=== PATIENT | male | born 1985 | race Caucasian/White ===

== ENCOUNTER 2016-10-28 17:12 | Inpatient (IN) | payer OTHER ==
[~2016-10-28] VITALS: Ht 190.5 cm; Wt 120.2 kg
[~2016-10-28 17:12] MED LIST: MAGNESIUM400 MG PO; SEA-OMEGA 50 C1 EACH PO; ST. JOHN'S WOR300 M1 PO; VITAMIN B-121000 MC3 PO; VITAMIN D2000 UNI1 PO
--- NOTE | 2016-10-28 17:30 | NUR ---
PT IN IOP ENCOURAGED TO COME BY CLINICIAN THERE. REPORTING INCREASED MOOD LABILITY, PLEASANT IN BEHAVIOR AND AFFECT. REPORTS FEELINGS OF DYSPHORIA, +SI, INTERMITTENT HI WHEN HE GETS FRUSTRATED WITH OTHERS, BUT STATES HE WOULD NEVER ACT ON THESE URGES. PLAN FOR ATTEMPT PRIMARILY BY HANGING, HAS HX OF THESE THOUGHTS BUT NO ATTEMPTS. DENIES FIREARMS AT HOME. SYMPTOMS BEGAN WORSENING 2 WEEKS AGO WITH MED CHANGE, INCREASED LITHIUM, ADDED REXALTE AND PRISTIQ. REPORTS INCREASED ETOH CONSUMPTION X2 WEEKS, 4-5 BEERS/DAY. DENIES ILLICIT DRUGS. APPEARS CALM, COOPERATIVE. REQUESTING TO SPEAK WITH CRISIS.
--- NOTE | 2016-10-28 17:45 | NUR ---
PT AMBULATORY TO ROOM 14. PT REPORTS HX OF BIPOLAR D/O AND LAST INPATIENT STAY WAS IN MARCH 2016. PT STATES HE HAS BEEN HAVING SI THOUGHTS, HAS BEEN DRINKING 3-5 DAYS PER WEEK (DOES NOT USUALLY DRINK), AND HAS BEEN TRYING TO RE-HOME HIS 2 DOGS. PT STATES THAT HE LIVES ALONE, SUPPORTS INCLUDE MOM, DAD AND SISTER. PT DENIES ILLICIT DRUG USE, REPORTS SMOKING A CIGAR OCCASIONALLY. PT STATES THAT HE HAS BEEN MED COMPLIANT WITH HIS LITHIUM, REXULTI AND PRISTIQ. PT REPORTS INCREASED APPETITE, DIFFICULTY CONCENTRATING AND VARIABLE SLEEP PATTERNS. PT REPORTS 3 PRIOR SUICIDE ATTEMPTS BY HANGING.
--- NOTE | 2016-10-28 17:49 | NUR ---
PA STUDENT AT BEDSIDE
--- NOTE | 2016-10-28 17:50 | NUR ---
SECURITY AT BEDSIDE FOR WANDING PT CHANGED INTO BLUE SCRUBS
--- NOTE | 2016-10-28 18:05 | NUR ---
URINE TRIO SENT TO LAB
--- NOTE | 2016-10-28 18:50 | NUR ---
BG SNIDER AND PA STUDENT AT BEDSIDE
[2016-10-28] MEDS ORDERED: PRISTIQ ER100 MG PO (19:01)
[2016-10-28] MEDS ORDERED: LITHIUM CARBON300 M4 PO ×2 (19:01)
[2016-10-28] MEDS ORDERED: REXULTI3 MG PO (19:02)
[2016-10-28 19:07] LABS: ABSOLUTE BASOPHIL COUNT 0 /CUMM (0.0-0.2); ABSOLUTE EOSINOPHIL COUNT 0.5 /CUMM (0.0-0.7); ABSOLUTE GRANULOCYTE CT 9.5 /CUMM (1.4-6.5); ABSOLUTE LYMPH COUNT 2.2 /CUMM (1.2-3.4); ABSOLUTE MONOCYTE COUNT 0.7 /CUMM (0.10-0.60); BASOPHIL % 0.3 % (0.0-2.0); EOSINOPHIL % 3.6 % (0-5); GRANULOCYTE % 73.7 % (42.2-75.2); HEMATOCRIT 41.6 % (42-52); MEAN CORPUSCULAR HGB CONC 33.5 G/DL (33.0-37.0); MEAN CORPUSCULAR VOLUME 89.8 FL (80.0-94.0); MEAN PLATELET VOLUME 8.3 FL (7.4-10.4); PLATELET COUNT 272 /CUMM (130-400); RBC DISTRIBUTION WIDTH 12.7 % (11.5-14.5); RED BLOOD CELL CT 4.63 /CUMM (4.70-6.10); WHITE BLOOD CELL COUNT 12.9 /CUMM (4.8-10.8)
--- NOTE | 2016-10-28 19:19 | ED PSYCHIATRIC COMPLAINT ---
History of Present Illness General Chief Complaint: Psychiatric Related Complaint Stated Complaint: DEPRESSION, +SI Source: patient Exam Limitations: no limitations Vital Signs & Intake/Output Vital Signs & Intake/Output Vital Signs Date Time Temp Pulse Resp B/P Pulse O2 O2 Flow FiO2 Ox Delivery Rate 10/31 0758 97.5 74 133/77 10/30 2008 97.9 93 130/74 10/30 1543 69 139/70 10/30 1201 69 142/73 Allergies Coded Allergies: aripiprazole (From [employer]) (REALLY BAD DIZZY SPELLS PER PT 10/28/16) Reconcile Medications Brexpiprazole (Rexulti) 3 MG TABLET 1 TAB PO QPM MENTAL HEALTH (Reported) Desvenlafaxine Succinate (Pristiq ER) 100 MG TAB.ER.24H 1 TAB PO QAM MENTAL HEALTH (Reported) Lolo Carbonate 300 MG CAPSULE 900 MG PO QAM MENTAL HEALTH (Reported) Lolo Carbonate 300 MG CAPSULE 1,200 MG PO QPM MENTAL HEALTH (Reported) Triage Note: PT IN IOP ENCOURAGED TO COME BY CLINICIAN THERE. REPORTING INCREASED MOOD LABILITY, PLEASANT IN BEHAVIOR AND AFFECT. REPORTS FEELINGS OF DYSPHORIA, +SI, INTERMITTENT HI WHEN HE GETS FRUSTRATED WITH OTHERS, BUT STATES HE WOULD NEVER ACT ON THESE URGES. PLAN FOR ATTEMPT PRIMARILY BY HANGING, HAS HX OF THESE THOUGHTS BUT NO ATTEMPTS. DENIES FIREARMS AT HOME. SYMPTOMS BEGAN WORSENING 2 WEEKS AGO WITH MED CHANGE, INCREASED LITHIUM, ADDED REXALTE AND PRISTIQ. REPORTS INCREASED ETOH CONSUMPTION X2 WEEKS, 4-5 BEERS/DAY. DENIES ILLICIT DRUGS. APPEARS CALM, COOPERATIVE. REQUESTING TO SPEAK WITH CRISIS. Triage Nurses Notes Reviewed? yes Onset: Abrupt Duration: week(s):, constant Timing: recent history HPI: 31-year-old male with a history of bipolar and depression comes into emergency room sent in by a psychiatrist for admission for uncontrolled bipolar at this time. Patient has had some behavioral changes recently that his psychiatrist concerned about. Patient has been drinking alcohol which is not typical for him. He denies any drug use. Patient has had some thoughts of suicide but denies any type of plan of action. Patient had been diagnosed with bipolar after a suicide attempt about a year ago. He was having abnormal thoughts that are not typical for him including giving away his dogs. His dogs he usually feels like her his children so this was abnormal for him. Patient has been having trouble concentrating at work. Denies any drug use. (NEFTALI DE LA FUENTE) Past History Travel History Traveled to [place] past 21 day No Medical History Any Pertinent Medical History? see below for history Neurological: NONE EENT: NONE Cardiovascular: hypertension Respiratory: NONE Gastrointestinal: umbilical hernia Hepatic: NONE Renal: NONE Musculoskeletal: NONE Psychiatric: anxiety, BIPOLAR DEPRESSION ADD Endocrine: NONE Blood Disorders: NONE Cancer(s): NONE History of MRSA: No History of VRE: No History of CDIFF: No Surgical History Surgical History: non-contributory Psychosocial History Who do you live with Other (see notes) What is your primary language Wallisian Tobacco Use: Never used ETOH Use: occasional use Illicit Drug Use: denies illicit drug use Family History Family History, If Any: FATHER Relation not specified for: FH: hemochromatosis Hx Contributory? No (NEFTALI DE LA FUENTE) Review of Systems Review of Systems Constitutional: Reports: no symptoms. EENTM: Reports: no symptoms. Respiratory: Reports: no symptoms. Cardiovascular: Reports: no symptoms. GI: Reports: no symptoms. Genitourinary: Reports: no symptoms. Musculoskeletal: Reports: no symptoms. Skin: Reports: no symptoms. Neurological/Psychological: Reports: see HPI. Hematologic/Endocrine: Reports: no symptoms. Immunologic/Allergic: Reports: no symptoms. All Other Systems: Reviewed and Negative (NEFTALI DE LA FUENTE) Physical Exam Physical Exam General Appearance: well developed/nourished, mild distress Head: atraumatic Eyes: Bilateral: normal appearance. Ears, Nose, Throat: normal ENT inspection, hearing grossly normal Neck: normal inspection Respiratory: no respiratory distress Cardiovascular: regular rate/rhythm Extremities: normal range of motion Neurological/Psychiatric: awake, alert, normal mood/affect Behavoir/Eye Contact/Speech: cooperative Thoughts/Hallucinations: no apparent hallucination Skin: intact, normal color, warm/dry SAD PERSONS Done? patient not suicidal (NEFTALI DE LA FUENTE) Progress Differential Diagnosis: dementia, drug intoxication, drug overdose, drug withdrawal, electrolyte abnormality, encephalitis, hypoglycemia, hypothyroidism, IC hem/mass/tumor, meningitis, bipolar, depression, schizoaffective disorder, Plan of Care: Orders Procedure Date/time Status LITHIUM 11/01 0700 Active BASIC ELECTROLYTES 11/01 0700 Active Change service to 10/31 UNK Active Current Medications Sig/Albert Start time Last Medication Dose Stop Time Status Admin Magnesium Hydroxide 30 ML AT BEDTIME PRN 10/28 2029 AC (Milk Of Magnesia) Acetaminophen 650 MG Q6-PRN PRN 10/28 2014 AC (Tylenol) Al Hydroxide/Mg 30 ML Q6PRN PRN 10/28 2014 AC Hydroxide (Maalox Plus) Lorazepam 1 MG Q6PRN PRN 10/28 2014 AC (Ativan) Departure Departure Condition: Stable Referrals: PATIENT HAS NO PRIMARY CARE DR (PCP/Family) Departure Forms: Customer Survey General Discharge Information (NEFTALI DE LA FUENTE) Departure Time of Disposition: 1942 Disposition: STILL A PATIENT Clinical Impression Primary Impression: Bipolar disorder, unspecified Psych Admission Note Psychiatric Admission: I have seen and evaluated VIV MURRELL. I have also reviewed all the pertinent lab results and diagnostic results. VIV MURRELL will be admitted to our inpatient Psychiatric unit for treatment and care. PA/LIFE COACH Co-Sign Statement Statement: ED Attending supervision documentation- [] I saw and evaluated the patient. I have also reviewed all the pertinent lab results and diagnostic results. I agree with the findings and the plan of care as documented in the PA's/LIFE COACH's documentation. [X] I have reviewed the ED Record and agree with the PA's/LIFE COACH's documentation. [] Additions or exceptions (if any) to the PAs/LIFE COACH's note and plan are summarized below: [] (RAJNI ASHLEY,MATTHEW) Al Hydroxide/Mg 30 ML Q6PRN PRN 10/28 2014 AC Hydroxide (Maalox Plus) Lorazepam 1 MG Q6PRN PRN 10/28 2014 AC (Ativan) Laboratory Tests 10/28/16 2020: Lolo Cancelled 10/28/16 1856: Anion Gap 9, Estimated GFR > 60, BUN/Creatinine Ratio 15.6, Glucose 95, Calcium 9.8, Total Bilirubin 0.6, AST 28, ALT 52, Alkaline Phosphatase 69, Total Protein 7.0, Albumin 4.4, Globulin 2.6, Albumin/Globulin Ratio 1.7, TSH Pending, CBC w Diff NO MAN DIFF REQ, RBC 4.63 L, MCV 89.8, MCH 30.0, RDW 12.7, MPV 8.3, Gran % 73.7, Lymphocytes % 17.2 L, Monocytes % 5.2, Eosinophils % 3.6, Basophils % 0.3 , Absolute Granulocytes 9.5 H, Absolute Lymphocytes 2.2, Absolute Monocytes 0.7 H, Absolute Eosinophils 0.5, Absolute Basophils 0, PUBS MCHC 33.5, Lolo 0.7, Serum Alcohol < 10.0 10/28/16 1800: Urine Opiates Screen < 100.00, Methadone Screen < 40, Barbiturate Screen < 60, Ur Phencyclidine Scrn < 6.00, Amphetamines Screen < 100, U Benzodiazepines Scrn < 85, Urine Cocaine Screen < 50, Urine Cannabis Screen < 5.00, Urine Color STRAW , Urine Clarity CLEAR, Urine pH 6.0, Ur Specific [place] 1.015, Urine Protein NEG, Urine Ketones NEG, Urine Nitrite NEG, Urine Bilirubin NEG, Urine Urobilinogen 0.2, Ur Leukocyte Esterase NEG, Ur Microscopic SEDIMENT EXAMINED, Urine RBC 3-5, Urine WBC 1-3 H, Ur Epithelial Cells OCCAS, Urine Mucus RARE, Urine Hemoglobin TRACE-INTACT H, Urine Glucose NEG Departure Departure Condition: Stable Referrals: PATIENT HAS NO PRIMARY CARE DR (PCP/Family) Departure Forms: Customer Survey General Discharge Information (AGATHA PEDERSON,NEFTALI) Departure Time of Disposition: 1942 Disposition: STILL A PATIENT Clinical Impression Primary Impression: Bipolar disorder, unspecified Psych Admission Note Psychiatric Admission: I have seen and evaluated VIV MURRELL. I have also reviewed all the pertinent lab results and diagnostic results. VIV MURRELL will be admitted to our inpatient Psychiatric unit for treatment and care. (RAJNI ASHLEY,MATTHEW)
[2016-10-28 19:26] LABS: LITHIUM 0.7 mmol/L (0.6-1.2)
--- NOTE | 2016-10-28 19:33 | NUR ---
CRISIS AT BEDSIDE
--- NOTE | 2016-10-28 19:41 | ED PSYCH CRISIS CONSULTATION ---
Crisis Consult Basic Assessment Date of Consult: 10/28/16 Responsible Person/Accompanied By: self Insurance Authorization: Insurance name: [employer] Phone number: Policy number: [id number] Group number: [id number] Authorization number: [id number] T/C to Jose Armando at [phone], spoke with Shawn Gudino who stated a Jose Armando reviewer will call Crisis within 2 hours to review clinical information for the pts admission. [place] stated the pts coverage is active and Luis Antonio is in Network. ED Provider: Patient's ED Provider: NEFTALI DE LA FUENTE Primary Care Physician: Patient's PCP: PATIENT HAS NO PRIMARY CARE DR PCP's Phone Number: Current Psychiatrist: Penelope Harris MD Chief Complaint: Psychiatric Related Complaint Patient's Quote: "I don't want to deal with this anymore." Present Illness: The pt is a 31yo male who at the recommendation of his outpatient therapist drove himself to the ED for SI with increasing mood swings. During this assessment the pt reports he continues to have SI and that 6 days ago he tied a noose with rope. During this assessment the pt stated I dont want to deal with this anymore and stated he continues to have thoughts of hanging himself. The pt was hospitalized at [facility] in 2013 after a suicide attempt by hanging. The pt stated his 2 dogs are like his children and he tried to give them away due to his SI and not having the energy to care for them. The pt describes his mood swings as intense highs and lows. The pt also stated I have had odd behavior over the past 2 weeks. The pt described he purchased $600 in tools he does not need and and he went from 1 beer a month to 4x in the past week drinking 5 beers. The pt stated that over the past 1 month he either sleeps for 12 hours or sleeps for 2 hours. The pt stated he went from a reasonable diet to eating everything in the past month. The pt stated his concentration is decreased making it difficult for him to function at work. The pt presents as alert, oriented, calm, pleasant and cooperative. The pt made appropriate eye contact and his speech was goal directed. The pt denies HI, AH, VH and paranoia. The pts toxicology screen is negative, the pt denies any drug use. The pt stated he is easily irritated by others and has thoughts to smack others but can easily control those thoughts. The pt lives by himself reports his parent and sister are supportive. The pt is requesting hospitalization for safety and medication adjustment. The pt reports a history of Bipolar Disorder. The pt has been inpt on [facility] 2x, 2013 and 2015. The pt attended [facility] after his discharge in 2015 and 04/14/16 began individual therapy with therapist Charlene Goodwin LCSW . The pt is also in medication management with Dr. Harris and his current medications include Capitola, Rexulti and Pristiq. The pt last saw Dr. Harris on 10/14/16. Therapist Charlene Goodwin LCSW ([phone]) called Luis Antonio Buckley while the pt was in her office for his session today. Ms. Goodwin stated she believes the pt is in need of psychiatric hospitalization. Ms. Goodwin stated the pt is reporting increasing SI and significant mood swings. Ms. Goodwin reported the pt disclosed in todays session that he tied a noose with rope 6 days ago. Ms. Goodwin stated the pt has a strong attachment to his 2 dogs that he is contemplating giving away. Ms. Goodwin stated the the pts current symptoms and functioning are not his baseline. According to Ms. Goodwin, the pts recent Capitola level was low. Pts presentation discussed with Dr. Sebastian, plan is for admission to [facility]. Pt is in agreement with this plan, signed the voluntary admission form and pt guidelines. Patient's Address: [address] [place] [address] Other Phone Number: Who Do You Live With? Patient/Self Family/Informants Interviewed: Outpt therapist Charlene Sims Allergies - Coded Allergies: aripiprazole (From [facility]) (REALLY BAD DIZZY SPELLS PER PT 10/28/16) Current Medications - Scheduled Medications Brexpiprazole (Rexulti) 3 MG TABLET 1 TAB PO QPM MENTAL HEALTH #30 (Reported) Entered as Reported by DOROTHY CRANE on 10/28/16 1902 Desvenlafaxine Succinate (Pristiq ER) 100 MG TAB.ER.24H 1 TAB PO QAM MENTAL HEALTH #30 (Reported) Entered as Reported by DOROTHY CRANE on 10/28/161900 Capitola Carbonate 300 MG CAPSULE 900 MG PO QAM MENTAL HEALTH #210 (Reported) Entered as Reported by DOROTHY CRANE on 10/28/161900 Capitola Carbonate 300 MG CAPSULE 1,200 MG PO QPM MENTAL HEALTH (Reported) Entered as Reported by DOROTHY CRANE on 10/28/161900 Laboratory Results: Laboratory Tests 10/28/16 1856: Anion Gap 9, Estimated GFR > 60, BUN/Creatinine Ratio 15.6, Glucose 95, Calcium 9.8, Total Bilirubin 0.6, AST 28, ALT 52, Alkaline Phosphatase 69, Total Protein 7.0, Albumin 4.4, Globulin 2.6, Albumin/Globulin Ratio 1.7, CBC w Diff NO MAN DIFF REQ, RBC 4.63 L, MCV 89.8, MCH 30.0, RDW 12.7, MPV 8.3, Gran % 73.7, Lymphocytes % 17.2 L, Monocytes % 5.2, Eosinophils % 3.6, Basophils % 0.3, Absolute Granulocytes 9.5 H, Absolute Lymphocytes 2.2, Absolute Monocytes 0.7 H, Absolute Eosinophils 0.5, Absolute Basophils 0, PUBS MCHC 33.5, Capitola 0.7, Serum Alcohol < 10.0 10/28/16 1800: Urine Opiates Screen < 100.00, Methadone Screen < 40, Barbiturate Screen < 60, Ur Phencyclidine Scrn < 6.00, Amphetamines Screen < 100, U Benzodiazepines Scrn < 85, Urine Cocaine Screen < 50, Urine Cannabis Screen < 5.00, Urine Color STRAW , Urine Clarity CLEAR, Urine pH 6.0, Ur Specific [place] 1.015, Urine Protein NEG, Urine Ketones NEG, Urine Nitrite NEG, Urine Bilirubin NEG, Urine Urobilinogen 0.2, Ur Leukocyte Esterase NEG, Ur Microscopic SEDIMENT EXAMINED, Urine RBC 3-5, Urine WBC 1-3 H, Ur Epithelial Cells OCCAS, Urine Mucus RARE, Urine Hemoglobin TRACE-INTACT H, Urine Glucose NEG Past History Past Medical History Neurological: NONE EENT: NONE Cardiovascular: hypertension Respiratory: NONE Gastrointestinal: umbilical hernia Hepatic: NONE Renal: NONE Musculoskeletal: NONE Psychiatric: anxiety, BIPOLAR DEPRESSION ADD Endocrine: NONE Blood Disorders: NONE Cancer(s): NONE Past Surgical History Surgical History: non-contributory Psychosocial History Strengths/Capabilities: The patient appears to have a supportive mother and sister. He has insight into his need for treatment and is motivated to attend. Physical Limitations (Interventions): None noted Psychiatric Treatment History Psych Treatment Psychiatric Treatment Yes Inpatient Treatment Yes Outpatient Treatment Yes Location of Treatment Inpt- [facility] 2013 and 2015. Outpt- [facility], outpt med mngt, indv ther Reason for Treatment Bipolar, depression, SI Dates of Treatment [facility] 2013, 2015. IOP- 2016. OP- ongoing Response to Treatment inconsistent Diagnosis by History: Bipolar Substance Use/Abuse History Drug Use/Abuse Substances Used/Abused Yes Substance Used/Abused Alcohol First Use uknown Last Used 10/27/15 How much used/taken 5 beers How often 4x in past week For how long 1 week Route of use oral Substance Abuse Treatment Substance Abuse Treatment Past Substance Abuse [place] No Current Mental Status Mental Status Orientation: Person, Place, Situation Affect: WNL Speech: WNL Neuro-vegetative: Appetite Increased, Concentration Poor, Helpless, Sleep Disturbance Appearance Appearance- Dress/Hygiene: appropriate Behaviors Thought Process: WNL Thought Content: WNL Memory: WNL Insight: WNL SI/HI Risk Assessment Past Suicidal Ideation/Attempts Yes Current Suicidal Ideation/Att Yes Past Homicidal Ideation/Att: No Current Homicidal Ideation/Attempts No Degree of Intent: Made Preparations, Plan Danger To: Self Risk Factors: access to lethal means, chronic/serious med cond., high anxiety/ distress, history of suicide atmpts, SA/MH hospitalized, substance abuse, poor impulse control, lack of outcome concern, lives alone, male Lethality Ratin PTSD Checklist PTSD Done? patient declined ED Management Sitter: Yes Restraints: No DSM5/PS Stressors/Medical Prob Diagnosis' (DSM 5, Stressors, Medical): F31.9 Unspecified Bipolar and Related Disorder Current GAF: 27 Departure Disposition Psych Medical Clearance Date: 10/28/16 Medically Cleared at: 1940 Time Started: 1800 Time Ended: 1829 Psychiatrist Consulted: Dr. Sebastian Date Disposition Established: 10/28/16 Time Disposition Established: 1944 Plan for Disposition - Modality: Inpatient Psychiatry Facility: [facility] Rationale for Disposition: Pt is a risk to self. Type of IP Admission: Voluntary Referrals PATIENT HAS NO PRIMARY CARE DR (PCP/Family)
--- NOTE | 2016-10-28 19:46 | NUR ---
PER CRISIS, PT IS A VOLUNTARY ADMISSION TO [facility].
--- NOTE | 2016-10-28 20:02 | NUR ---
REPORT CALLED TO [facility] ON [facility], THEY ARE READY FOR PT NOW, AWAITING PACKET FROM ADMITTING.
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
--- NOTE | 2016-10-28 20:26 | NUR ---
PT AWAITING TRANSFER DOWN TO [facility]. PT CALM AND COOPERATIVE, WATCHING TV.
--- NOTE | 2016-10-28 20:32 | NUR ---
TRANSPORT CALLED. CRISIS SPOKE WITH ADMITTING MD, PER MD CAN CANCEL LITHIUM LEVEL (DID NOT REALIZE ONE WAS DONE ALREADY) AND CHANGE TSH TO ADD ON.
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
[2016-10-28 20:53] VITALS: BP 148/79
--- NOTE | 2016-10-28 22:10 | NUR ---
PT. ADMITTED TO [facility] ALERT ORIENTED VITALS STABLE. PT DOES NOT FEEL SUICIDAL AT THIS TIME. DENIES DEPRESSION AT THIS TIME. INTERVIEW OBTAINED PT. ORIENTED TO SURROUNDINGS. PT. WOULD LIKE THE FLU VACCINE. HOD NOTIFIED FOR H&P.
--- NOTE | 2016-10-28 22:46 | History & Physical ---
General Information and HPI MD Statement: I have seen and personally examined VIV MURRELL and documented this H&P. The patient is a 31 year old M who presented with a patient stated chief complaint of [ medical evaluation ]. Source of Information: patient Exam Limitations: no limitations History of Present Illness: 31-year-old male with a past medical history significant for anxiety, depression , bipolar disorder presented to ER for labile mood. Patient has been going through behavioral changes and was being treated outpatient, lithium levels were not stable, patient endorses drinking, rachael-like symptoms. Has suicidal thoughts but no exact plan, not homicidal. Patients was diagnosed to have hypertension in the past, lost 30 pound weight with diet control, exercise, reevaluated by PCP, discontinued amlodipine May 2016. Patient was on 5 mg amlodipine before that. 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 Complete 14 point ROS was negative including no chest pain, shortness of breath, palpitations, headache, nausea, vomiting, diarrhea, abdominal pain, constipation , headache, blurry vision, neurological weakness, leg swelling. Patient denied any exertional chest pain or shortness of breath either. As his father has history of hemochromatosis, patient was being evaluated outpatient with the serial blood test which appears to be CBC and ferritin which was within normal range so patient did not undergo any Wil testing. Allergies/Medications Allergies: Coded Allergies: aripiprazole (From [facility]) (REALLY BAD DIZZY SPELLS PER PT 10/28/16) Home Med list Brexpiprazole (Rexulti) 3 MG TABLET 1 TAB PO QPM MENTAL HEALTH (Reported) Desvenlafaxine Succinate (Pristiq ER) 100 MG TAB.ER.24H 1 TAB PO QAM MENTAL HEALTH (Reported) [place] Carbonate 300 MG CAPSULE 900 MG PO QAM MENTAL HEALTH (Reported) [place] Carbonate 300 MG CAPSULE 1,200 MG PO QPM MENTAL HEALTH (Reported) Compliance With Home Meds: GOOD Past History Travel History Traveled to [place] past 21 day No Medical History Neurological: NONE EENT: NONE Cardiovascular: hypertension Respiratory: NONE Gastrointestinal: umbilical hernia Hepatic: NONE Renal: NONE Musculoskeletal: NONE Psychiatric: anxiety, BIPOLAR DEPRESSION ADD Endocrine: NONE Blood Disorders: NONE Cancer(s): NONE History of MRSA: No History of VRE: No History of CDIFF: No Isolation History: Standard Influenza Vaccine: 05/14/15 Surgical History Surgical History: non-contributory Past Family/Social History Family History Relations & Conditions if any FATHER Relation not specified for: FH: hemochromatosis Psychosocial History Where do you live? Home Who Do You Live With? self Services at Home: None Primary Language: Singaporean ETOH Use: occasional use Illicit Drug Use: denies illicit drug use Functional Ability ADLs Independent: dressing, eating, toileting, bathing. Ambulation: independent IADLs Independent: shopping, housework, finances, food prep, telephone, transportation , medication admin. 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 EENTM: Reports: no symptoms. Cardiovascular: Reports: no symptoms. Respiratory: Reports: no symptoms. GI: Reports: no symptoms. Genitourinary: Reports: no symptoms. Musculoskeletal: Reports: no symptoms. Skin: Reports: no symptoms. Neurological/Psychological: Reports: no symptoms. Hematologic/Endocrine: Reports: no symptoms. Immunologic/Allergic: Reports: no symptoms. All Other Systems: Reviewed and Negative Exam & Diagnostic Data Last 24 Hrs of Vital Signs/I&O Vital Signs Date Time Temp Pulse Resp B/P Pulse O2 O2 Flow FiO2 Ox Delivery Rate 10/28 2052 97.9 83 148/79 10/28 1958 98.0 98 20 142/82 98 Room Air 10/28 1821 Room Air 10/28 1741 97.4 75 16 134/84 99 Room Air Intake & Output 10/28 1600 10/29 0000 10/29 0800 Intake Total Output Total Balance Patient 120.202 kg Weight Physical Exam General Appearance Alert, Oriented X3, Cooperative, No Acute Distress Skin No Rashes, No Breakdown, No Significant Lesion HEENT Atraumatic, PERRLA, EOMI, Mucous Membr. moist/pink Neck Supple, No JVD, No thryomegaly, +2 Carotid Pulse wo Bruit Lymphatic Cervical nl Cardiovascular Regular Rate, Normal S1, Normal S2, No Murmurs Lungs Clear to Auscultation, Normal Air Movement Abdomen Normal Bowel Sounds, Soft, No Tenderness, No Hepatospenomegaly, No Masses Neurological Exam Findings: Normal Gait, Normal Speech, Strength at 5/5 X4 Ext, Normal Tone, Sensation Intact, Cranial Nerves 3-12 NL, Reflexes 2+ Cranial Nerves II through XII: Intact Extremities No Clubbing, No Cyanosis, No Edema, Normal Pulses, No Tenderness/ Swelling Vascular Normal Pulses, Pulses Symmetrical Last 24 Hrs of Labs/Vamsi: Laboratory Tests 10/28/162019: [place] Cancelled 10/28/16 1856: Anion Gap 9, Estimated GFR > 60, BUN/Creatinine Ratio 15.6, Glucose 95, Calcium 9.8, Total Bilirubin 0.6, AST 28, ALT 52, Alkaline Phosphatase 69, Total Protein 7.0, Albumin 4.4, Globulin 2.6, Albumin/Globulin Ratio 1.7, TSH 0.737, CBC w Diff NO MAN DIFF REQ, RBC 4.63 L, MCV 89.8, MCH 30.0, RDW 12.7, MPV 8.3, Gran % 73.7, Lymphocytes % 17.2 L, Monocytes % 5.2, Eosinophils % 3.6, Basophils % 0.3 , Absolute Granulocytes 9.5 H, Absolute Lymphocytes 2.2, Absolute Monocytes 0.7 H, Absolute Eosinophils 0.5, Absolute Basophils 0, PUBS MCHC 33.5, [place] 0.7, Serum Alcohol < 10.0 10/28/16 1800: Urine Opiates Screen < 100.00, Methadone Screen < 40, Barbiturate Screen < 60, Ur Phencyclidine Scrn < 6.00, Amphetamines Screen < 100, U Benzodiazepines Scrn < 85, Urine Cocaine Screen < 50, Urine Cannabis Screen < 5.00, Urine Color STRAW , Urine Clarity CLEAR, Urine pH 6.0, Ur Specific Rodney 1.015, Urine Protein NEG, Urine Ketones NEG, Urine Nitrite NEG, Urine Bilirubin NEG, Urine Urobilinogen 0.2, Ur Leukocyte Esterase NEG, Ur Microscopic SEDIMENT EXAMINED, Urine RBC 3-5, Urine WBC 1-3 H, Ur Epithelial Cells OCCAS, Urine Mucus RARE, Urine Hemoglobin TRACE-INTACT H, Urine Glucose NEG Assessment/Plan Assessment: #1 anxiety/depression/bipolar disorder: Agree with psychiatrist treatment #2 History of hypertension: He was treated with amlodipine in the past, discontinued after her weight loss in May 2016, currently blood pressure in acceptable range. #3 father has history of hemochromatosis: The patient was evaluated outpatient for the same but without any Gene testing. As Ranked By This Provider Problem List: 1. Depression 2. HTN (hypertension) 3. Bipolar disorder, unspecified Miscellaneous Miscellaneous Documentation Attending Case Discussed With: YOLIE ASHLEY,HELEN Primary Care Physician: PATIENT HAS NO PRIMARY CARE DR Patient sees these Specialists None Level of Patient Care: MACARENA Berry
--- NOTE | 2016-10-29 03:51 | NUR ---
AWAKE ONCE TO THE BATHROOM.
--- NOTE | 2016-10-29 04:11 | Admission Certification ---
Admission Certification Certification Statement - As attending physician, I certify that at the time of - admission, based on clinical presentation, severity of - symptoms, need for further diagnostic testing and - therapeutic interventions, and risk of adverse outcomes - without in-hospital treatment, in my clinical assessment, - this patient requires an acute hospital stay for a minimum - of two nights or longer. I have also considered psychsocial - factors such as support system, advanced age, financial - issues, cognitive issues, and failed out-patient treatments, - past re-admission history, safety of patient, and lack of - compliance as applicable. Specific rationale supporting this admission is: bipolar disorder, labile mood
[2016-10-29 07:34] VITALS: BP 146/88
[2016-10-29 07:45] VITALS: BP 146/88
[2016-10-29 12:08] VITALS: BP 147/83
--- NOTE | 2016-10-29 13:06 | NUR ---
PT WAS VISIBLE IN THE [facility] TODAY. HIS GOAL WAS TO TALK TO DR ABOUT MEDICATION ADJUSTMENTS. IN THE [place] PT HAS BEEN COOPERATIVE AND ATTENDING GROUPS TODAY. PT IS QUIET, AND KEEPS MOSTLY TO HIMSELF. HIS INTERACTIONS WITH HIS PEERS ARE MINIMAL BUT HAS BEEN IN THE [place] WATCHING TELEVISION. PT DENIES WHEN ASKED THOUGHTS TO HURT HIMSELF.
--- NOTE | 2016-10-29 13:18 | CPS MD/APRN INITIAL ASSE PSYCH ---
Psychiatric Admission Janitorial Cleaner's Note Reviewed: Yes Patient Seen and Examined: Yes Identifying Information: Ang Montoya, 31 year old male, with history of Bipolar I Chief Complaint: thoughts of suicide by hanging Reaction to Hospitalization: equested hospitalization/agrees History of Present Illness Onset of Illness: suicidal ideation after breaking up with GF Circumstances Leading to Admission: 30-year-old white male who presented to the emergency room on 10/28/2016. At the recommendations of his outpatient therapist. He reportedly was having thoughts of suicide. The patient reported to the crisis intervention clinician that he has been having thoughts of suicide for the past 6 days. Reportedly he tied and loose about 6 days ago. He did not go through with a suicide attempt. He however reported that he continues to have ongoing thoughts about hanging himself. The patient reported that he has 2 dogs that unlike his children. He reported that lately has been thinking about giving them away in case he does something to himself. He also reported that lately he has not been having the energy to take care of them. He described intense mood swings with intense highs and intense lows. He also described odd behavior over the past 2 weeks. Patient described spending $600 worth of tools that he didnt really need. He also reported increasing it and increasing his drinking over the past week. He also described either sleeping too much more than 12 hours per day or sleeping too little less than 2 hours a day. He also reported a significant decline in his concentration and his ability to function. Crisis described him as alert and oriented calm present and cooperative denying hallucinations or paranoia requesting hospitalization. Problem(s) Justifying Need for Admission: 30-year-old white male who presented to the emergency room on 10/28/2016. At the recommendations of his outpatient therapist. He reportedly was having thoughts of suicide. The patient reported to the crisis intervention clinician that he has been having thoughts of suicide for the past 6 days. Reportedly he tied and loose about 6 days ago. He did not go through with a suicide attempt. He however reported that he continues to have ongoing thoughts about hanging himself. The patient reported that he has 2 dogs that unlike his children. He reported that lately has been thinking about giving them away in case he does something to himself. He also reported that lately he has not been having the energy to take care of them. He described intense mood swings with intense highs and intense lows. He also described odd behavior over the past 2 weeks. Patient described spending $600 worth of tools that he didnt really need. He also reported increasing it and increasing his drinking over the past week. He also described either sleeping too much more than 12 hours per day or sleeping too little less than 2 hours a day. He also reported a significant decline in his concentration and his ability to function. Crisis described him as alert and oriented calm present and cooperative denying hallucinations or paranoia requesting hospitalization. Other HPI: 30-year-old white male who presented to the emergency room on 10/28/2016. At the recommendations of his outpatient therapist. He reportedly was having thoughts of suicide. The patient reported to the crisis intervention clinician that he has been having thoughts of suicide for the past 6 days. Reportedly he tied and loose about 6 days ago. He did not go through with a suicide attempt. He however reported that he continues to have ongoing thoughts about hanging himself. The patient reported that he has 2 dogs that unlike his children. He reported that lately has been thinking about giving them away in case he does something to himself. He also reported that lately he has not been having the energy to take care of them. He described intense mood swings with intense highs and intense lows. He also described odd behavior over the past 2 weeks. Patient described spending $600 worth of tools that he didnt really need. He also reported increasing it and increasing his drinking over the past week. He also described either sleeping too much more than 12 hours per day or sleeping too little less than 2 hours a day. He also reported a significant decline in his concentration and his ability to function. Crisis described him as alert and oriented calm present and cooperative denying hallucinations or paranoia requesting hospitalization. Past Psychiatric History Past Diagnosis(es)- if any: Bipolar I Past Precipitating Factors- if any: breakups - Include inpatient and outpatient treatment Treatment History: Past psychiatric history The patient has been inpatient thoughts at [facility] twice in 2013 and another time in 2015 and this would make the fourth inpatient admission to [facility] the patient was previously hospitalized at [facility] back in 2013 following a suicide attempt by hanging. The patient has been seeing Dr. Jason Bronson or and and he reported thats the last time he saw her was an increase in his REXULTI. He also has been seeingt herapist Charlene Goodwin GEOPHYSICAL MANAGER. The previous record of [facility] indicated that in 2013 he reportedly was found hanging by his mother and sister. This was following the breakup. The patient reportedly has no history of alcohol or drug abuse. History of Suicide Attempts or Gestures Suicide attempt by hanging in 2014, admitted to [facility] Substance Abuse History: Denied Allergies: Coded Allergies: aripiprazole (From [facility]) (REALLY BAD DIZZY SPELLS PER PT 10/28/16) Home Med List: [place], Pristiq, Rexulti - Include any medical condition(s) that may - impact the patient's recovery/remission Past Medical History: HTN Past History Medical History Neurological: NONE EENT: NONE Cardiovascular: hypertension Respiratory: NONE Gastrointestinal: umbilical hernia Hepatic: NONE Renal: NONE Musculoskeletal: NONE Psychiatric: anxiety, BIPOLAR DEPRESSION ADD Endocrine: NONE Blood Disorders: NONE Cancer(s): NONE History of MRSA: No History of VRE: No History of CDIFF: No Isolation History: Standard Influenza Vaccine: 05/14/15 Surgical History Surgical History: none Psychiatric Family/Social Hx Family History Psychiatric Illness: father: alcoholism No suicides in family Substance Use: alcohol: father Suicides: no Social History Living Situation: with his 3 dogs Significant Relationships (family/friends): mother, 3 dogs Education: GED/trade school 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 - #1 Recognizing dangerous situations. - #2 Coping Skills. - #3 Basic information about quitting. Status of Tobacco Cessation Counseling: N/A B/C NO TOB USE Cessation Med Status: No Tobacco Use last 30d Alcohol Screening - ETOH screen POS if BAL >=80 or Audit-C>= M4/F3 Audit-C Score from Diag Assess: 6 Blood Alcohol Level: Laboratory Tests 10/28 1856 Toxicology Serum Alcohol (<10 MG/DL) < 10.0 Alcohol Use Screening Results: Pos per Audit C &/or BAL - If ETOH counseling indicated - the following topics are required. - #1 Express concern about the patient's - drinking at unhealthy levels, include informing - of national norms for moderate drinking: - men <= 14 drinks/week, max 4 drinks/occasion - women <= 7 drinks/week, max 3 drinks/occasion - #2 Providing feedback, including linking alcohol to - negative physical effects (liver injury, hypertension) - negative emotional effects (relationship problems and - depression) - negative occupational consequences (reduced work - performance) - #3 Advising the patient to abstain from alcohol or - to drink below national norms for moderate drinking - (as listed above). Status of ETOH Use Counseling: #1, #2 AND #3 Completed. Metabolic Screening - Screen if on a Neuroleptic Medication - Metabolic screening should include: - Blood Pressure, BMI, Glucose or Hgb A1c, & a - Lipid profile from within the past 365 days. Metabolic Screening () Not Applicable, patient not on a neuroleptic. OR ([X]) Patient on a neuroleptic(s) . Enter below results for Glucose or Hemoglobin A1C, and lipid panel if obtained during the last 365 days. BMI: 33.100 Blood Pressure: 147/83 Laboratory Results (If applicable): Exam and Plan Mental Status Examination Ambulation Status: Fully mobile Appearance: Good personal hygiene Attitude towards examiner: Pleasant Psychomotor activity: Normal Behavior: No abnormalities noted Quality of speech: Not pressured, not slurred Affect: Constricted Mood: Depressed Suicidal Ideation: Yes Homicidal Ideation: No Hallucinations: No Paranoid/Delusional Material: No Difficulties with thought organization: Minimal Insight: Good Judgment: Fair Orientation: Oriented x 3 Cognition: no deficits noted Memory Function: intact Estimate of intellectual functioning: Average Assets/Strengths Patient Identified Assets/Strengths: employed, loves his dogs Impression/Plan Impression and Plan: Bipolar I in depressed episode with od suicide by hanging Plan: Inpatient level of care Continue lithium 600 mg TID Continue Pristiq 100 mg daily Continue Rexulti 3 mg daily Evaluate again tomorrow - Include all active medical diagnosis that require tx DSM 5 Diagnosis(es): Bipolar I depressed - Initial Tx Plan for Active Psych & Medical Conditions Treatment Plan: Inpatient level of care Continue lithium 600 mg TID Continue Pristiq 100 mg daily Continue Rexulti 3 mg daily Evaluate again tomorrow - Factors that would help patient function - in a less restrictive setting. Factors: Medication monitoring
[2016-10-29 15:37] VITALS: BP 146/86
--- NOTE | 2016-10-29 18:32 | NUR ---
PT VISIBLE IN THE [facility] TODAY. HE HAD A VISIT FROM HIS MOTHER TODAY, WHICH SEEMED TO HAVE WENT OKAY. IN THE [place] PT HAS BEEN WATCHING TELEVISION IN THE LOUNGE WITH SOME OF HIS PEERS. HE IS COMPLIAINT WITH STAFF DIRECTION, AND DENIES THOUGHTS OF HURTING SELF WHEN ASKED.
[2016-10-29 19:05] VITALS: BP 152/89
--- NOTE | 2016-10-30 05:41 | NUR ---
PT APPEARED TO SLEEP THRU THE NIGHT.
--- NOTE | 2016-10-30 05:46 | NUR ---
PT APPEARED TO SLEEP WELL.
[2016-10-30 07:44] VITALS: BP 128/70
[2016-10-30 12:01] VITALS: BP 142/73
--- NOTE | 2016-10-30 12:58 | NUR ---
Pt is present on the unit and appears superficially withdrawn yet does interact and engage with staff when prompted, is attending all groups, mood stable with full range affect, pet the therapy dog when she arrived and enjoyed that, no issues or complaints offered or reported.
--- NOTE | 2016-10-30 15:05 | CP SOUTH PROGRESS NOTE PSYCH ---
Psych (Inpt) Progress Note Progress Note 30-year-old white male who presented to the emergency room on 10/28/2016 at the recommendations of his outpatient therapist. He reportedly was having thoughts of suicide. The patient reported to the crisis intervention clinician that he has been having thoughts of suicide for the past 6 days. Reportedly he tied and loose about 6 days ago. He did not go through with a suicide attempt. Today, 10/30/2016, pt. was calm and cooperative. Good personal hygiene, pleasant, showed normal psychomotor activity: No abnormalities in behavior or speech, constricted affect, he said his mood was He denied hallucinations, and did not seem to be hallucinating. No paranoia or delusions. Organized thoughts Good insight and judgment: Alert and oriented x 3 no memory deficits DX: Bipolar I in depressed episode with od suicide by hanging Plan: Continue lithium 600 mg TID Continue Pristiq 100 mg daily Continue Rexulti 3 mg daily Repeat Sodium and [place] level
[2016-10-30 15:43] VITALS: BP 139/70
[2016-10-30 20:09] VITALS: BP 130/74
--- NOTE | 2016-10-30 23:15 | NUR ---
VIV GOAL WAS TO ADJUST BETTER TO THE MEDS AND HE FEELS HE IS DOING THAT. PT -SI.
--- NOTE | 2016-10-31 06:01 | NUR ---
PT APPEARED TO SLEEP THRU THE NIGHT.
[2016-10-31 07:58] VITALS: BP 133/77
[2016-10-31 12:16] VITALS: BP 146/82
--- NOTE | 2016-10-31 13:25 | NUR ---
PT IS COMPLIANT AND COOPERATIVE. MOOD IS STABLE WITH A CONSTRICTED AFFECT. PT DENIES SI AT THIS TIME, NO COMPLAINTS OFFERED. PT IS PRESENT IN THE COMMUNITY AND INTERACTING WELL WITH PEERS AND STAFF. PT IS ATTENDING GROUPS. VITALS ARE STABLE, APPETITE IS GOOD.
--- NOTE | 2016-10-31 13:25 | CP SOUTH PROGRESS NOTE PSYCH ---
Psych (Inpt) Progress Note Progress Note Include the following elements, when applicable: Involvement in the active treatment of the patient with behavioral observations of the patient and the patient's response to the treatment. Review of the ongoing treatment process in the context of the treatment plan. Indication of how multi-disciplinary staff members are carrying out the treatment plan. Plans for future interventions and recommendations for revision of the treatment plan. Liaison with other physicians/providers. Progress Note: [I discussed this patient's progress to date, current mental status, treatment process in the context of the treatment plan, and discharge planning with staff/ team in the daily morning inpatient team meeting. I also met with the patient myself in individual session.] S: "I feel alright here." O: Laboratory Tests 10/28 1856 Toxicology Eakly (0.6 - 1.2 mmol/L) 0.7 Current Medications Sig/Albert Start time Last Medication Dose Route Stop Time Status Admin Acetaminophen 650 MG Q6-PRN PRN 10/28 2014 AC PO Al Hydroxide/Mg 30 ML Q6PRN PRN 10/28 2014 AC Hydroxide PO Brexpiprazole 3 MG DAILY 10/29 1000 AC 10/31 PO 0850 Desvenlafaxine 100 MG DAILY 10/29 1000 AC 10/31 Succinate PO 0850 Eakly Carbonate 600 MG TID 10/28 2200 AC 10/31 PO 0850 Lorazepam 1 MG Q6PRN PRN 10/28 2014 AC PO Magnesium Hydroxide 30 ML AT BEDTIME PRN 10/28 2030 AC PO Vital Signs Date Time Temp Pulse Resp B/P Pulse O2 O2 Flow FiO2 Ox Delivery Rate 10/31 1216 82 146/82 10/31 0758 97.5 74 133/77 10/30 2008 97.9 93 130/74 10/30 1543 69 139/70 A: Chart, progress notes, VS, labs and medication list were reviewed. Li level of 0.7 on 10/28/16 was not a trough level. Rpt Li level rescheduled for tomorrow morning. Patient is a 31-year old male with a history of Bipolar disorder, CARLOS, r/o PTSD. He presented to the emergency room on 10/28/2016, following the recommendation of his outpatient therapist. He reportedly was having thoughts of suicide. The patient reported to the crisis intervention clinician that he has been having thoughts of suicide for the past 6 days. Reportedly he tied a noose about 6 days ago, but did not act on this and threw the noose out. He then reported that he called his mother who came over to his house, and the following day he met with his therapist who told him to go to ED. He additionally reported mood lability prior to admission to [facility]. On encounter today, the patient presented alert and oriented to person, place, time and situation. Speech was normal in rate, tone and volume. Eye contact was appropriate. Affect was full-range. He appeared well-adjusted to milieu. He reported his mood was "anxious." He reported the stressors leading to the events resulting in [facility] admission was family stress. He reported his father's health is declining and soon he will be wheelchair bound. He reported he has been helping his mother care for his father , in addition to working FT 6 days a week. He reported coping with stress by drinking alcohol, 4-5 beers approx. 3-5x week x 2 weeks. He reported anxiety of 6/10 (10 being the worst) and depression of 1-2/10 (10 being the worst). He denied feleing hopeless, helpless, worthless and guilty. He reported his mother as a positive support. He denied passive and active suicidal ideation, plans and intent. He denied homicidal ideation, auditory and visual hallucinations. Thought process was organized and linear. Thought content was mildly anxious. Cognition was grossly intact. Patient reported past failed trials of Abilify, Lexapro, Effexor, Trazodone, and other SSRIs. He reported sexual SEs on SSRIs and Effexor. Spoke to Dr. Harris who also corrobarated this information. Dr. Harris also reported that the patient is a fast metabolizer on these medications and in the past he has needed high doses of Eakly. Will continue current medication regimen until receiving Eakly result tomorrow morning. If Li level is subtherapeutic, will increase for mood stabilization. Otherwise will consider adjusting antidepressant. P: 1. Continue monitoring patient on unit for safety, suicidal ideation, and mood. 2. Rpt Eakly and serum sodium scheduled for tomorrow morning. Will increase Li tomorrow morning if subtherapeutic. 3. Continue Pristiq 100mg daily for anxiety/depression. 4. EKG ordered and obtained - showed A Flutter. Reviewed with Dr. Zigun and will order cardiology consult. Also requested HOD to review EKG tonight in the event cardiology consult is not completed tonight. 5. Dispo planning per primary team.
[2016-10-31 15:54] VITALS: BP 129/75
--- NOTE | 2016-10-31 17:08 | SOCIAL WORKER PROG NOTE PSYCH ---
Social Work Progress Note Progress Note Ang talked about having mood lability over the past couple of weeks. Increased drinking, which is not the norm for him. He was starting to drink 4-5 beers 4x's a week going to bars on his own. His Father was an alcoholic and he has always been mindful of his drinking. He said he felt that the meds weren't helping him. He is hoping that something would help with the rapid cycling he was experiencing. As of today he rates his depression at 2/3 (10 being worst) and anxiety at a 2 (10 being worst). He identifies triggers for him as stress related to Father's worsening medical conditions and work. He talked about his parents calling him to fix and do things around the house for them all the time. He feels responsible to help them, but he is also feeling a little resentful at the same time. His sister is not as involved in their care. 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 He sees Dr. Harris at [facility] monthly and sees Charlene Sims [facility] for therapy weekly. He signed a release for Charlene. He most likely will return to doing outpatient when he leaves due to the high copay he has for IOP. He said it cost him $80 a session. Willing to have his Mom in for a family meeting. Called Mom and left a message. Called Charlene Sims. Charlene has an appt. scheduled for Ang on at 4pm. Talked about how he is doing here and possible discharge for or morning.
--- NOTE | 2016-10-31 17:10 | SOCIAL WORKER TX PLAN PSYCH ---
Treatment Plan - Please Document: - Evidence that there is ongoing collaboration between - the patient and the interdisciplinary team, - including the patient's active participation and - responsibility for engaging in the treatment regimen, - and that the treatment plan is individualized and - relevant to the patient's conditions. - Treatment plan should reflect documentation indicating - that all active therapeutic efforts are included. Strengths/Capabilities: The patient has good insight into his need for treatment and is motivated to attend. Physical Limitations (Interventions): None noted Patient Identified Trmt Goals: I need my mood swings to stablize Discharge Plan: Return to [place] outpatient with Dr. Harris and therapy with Charlene Sims Problem/Goals #1 Problem #1: suicidal ideation Goal (Short Term): Patient will explore medication changes that will help decrease mood lability. Goal (Residential): Patient will identify activities in the community that help make life worth living. Interventions: Patient will be offered medication management with the psychiatrist, groups on symptom management, coping skills, goals group, focus group, relaxation, accupuncture. General Surgeon will discuss strengths and things that make life worth living. General Surgeon will hold family meeting and help set up aftercare. DSM5/PS Stressors/Medical Prob Diagnosis' (DSM 5, Stressors, Medical): F31.9 Unspecified Bipolar and Related Disorder Current GAF: 27 Treatment Team - Responsibilities of members of the treatment team include: - Medication Management- MD or TECHNOLOGY ADOPTION MANAGER - Medication Administration and Monitoring- Nurse - Group Therapy- Occupational Therapist - 1:1 Therapy,Disch Planning,family involvement-General Surgeon
[2016-10-31 19:37] VITALS: BP 147/73
--- NOTE | 2016-10-31 21:02 | NUR ---
PT IS CALM, COOPERATIVE WITH STAFF AND PEERS, AND COMPLIANT WITH UNIT RULES. PT IS OFTEN IN MILIEU, AND INTERACTS WELL WITH OTHERS. MOOD IS STABLE, AFFECT APPEARS EUTHMIC TO FULL RANGE, COMMUNICATION IS ORGANIZED AND APPEARS NORMAL IN ALL ASPECTS, AND APPETITE IS NORMAL. PT DENIES SI AT THIS TIME.
--- NOTE | 2016-10-31 23:33 | NUR ---
2241 EKG REVIEWED BY WENDI FLETCHER.
[2016-11-01 07:37] VITALS: BP 139/79
[2016-11-01 08:14] LABS: LITHIUM 0.5 mmol/L (0.6-1.2)
--- NOTE | 2016-11-01 10:18 | Cons- Cardiology ---
General Information and HPI Consulting Request Date of Consult: 11/01/16 Requested By: JAIMIE ASHLEY,LAYTON Patricia History of Present Illness: Ang is a 31 year old male with history of hypertension who was admitted for treatment of depression. A routine ECG obtained while on Onley therapy was remarkable for a computer reading of atrial flutter. Upon my review this ECG shows a sinus rhythm with small non-diagnostic inferior Q waves and early transition. This ECG is somewhat suspicious for an old inferior wall PA however this patient is at least moderately active at his baseline and he denies any chest pain, pressure or tightness. 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 He otherwise denies any shortness of breath, lightheadedness or palpitations. At one time he was on Amlodipine for his hypertension but this medication was discontinued after he lost about twenty pounds. Allergies/Medications Allergies: Coded Allergies: aripiprazole (From [email or web address]) (REALLY BAD DIZZY SPELLS PER PT 10/28/16) Home Med List: Brexpiprazole (Rexulti) 3 MG TABLET 1 TAB PO QPM MENTAL HEALTH (Reported) Desvenlafaxine Succinate (Pristiq ER) 100 MG TAB.ER.24H 1 TAB PO QAM MENTAL HEALTH (Reported) Onley Carbonate 300 MG CAPSULE 900 MG PO QAM MENTAL HEALTH (Reported) Onley Carbonate 300 MG CAPSULE 1,200 MG PO QPM MENTAL HEALTH (Reported) Review of Systems Review of Systems: depression Past History Travel History Traveled to [place] past 21 day No Medical History Neurological: NONE EENT: NONE Cardiovascular: hypertension Respiratory: NONE Gastrointestinal: umbilical hernia Hepatic: NONE Renal: NONE Musculoskeletal: NONE Psychiatric: anxiety, BIPOLAR DEPRESSION ADD Endocrine: NONE Blood Disorders: NONE Cancer(s): NONE Surgical History Surgical History: non-contributory Family History Relations & Conditions If Any: FATHER Relation not specified for: FH: hemochromatosis Family History Reviewed? Father: hemochromotosis and atrial fibrillation Psychosocial History Where Do You Live? Home Who Do You Live With? self Services at Home: None Primary Language: Sinhala Smoking Status: Light Tobacco Smoker (rare cigar) ETOH Use: occasional use Illicit Drug Use: denies illicit drug use Functional Ability ADLs Independent: dressing, eating, toileting, bathing. Ambulation: independent IADLs Independent: shopping, housework, finances, food prep, telephone, transportation , medication admin. 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 Exam & Diagnostic Data Vital Signs and I&O Vital Signs Date Time Temp Pulse Resp B/P Pulse O2 O2 Flow FiO2 Ox Delivery Rate 11/01 0737 97.6 69 139/79 10/31 1937 97.6 78 147/73 10/31 1554 84 129/75 10/31 1216 82 146/82 Physical Exam: General: WD/ overweight male in NAD; alert and oriented x 3 HEENT: NC/ AT, PERRL, EOMI, clear oropharynx Neck: no JVD, no carotid bruit Heart: RRR w/o murmur Lungs: clear bilaterally Abdomen: soft, obese, NT, +ve bowel sounds Extremities: no edema Diagnostic Data EKG Results sinus rhythm with small non-diagnostic inferior Q waves and early transition Assessment/Plan Assessment/Plan * This patient has no electrocardiographic evidence of atrial flutter. The electronic computer reading on his ECG was in error. He is also free of any palpitations. * This patient has shown evidence of some mildly increased blood pressure measurements. In addition to weight loss and a low sodium diet I recommend beginning a small dose of ACEI such as Lisinopril 10mg daily. * This patient has no active symptoms of ischemia but does have borderline inferior Q waves and early transition. Try and obtain his old stress test results. This patient should follow up in the office upon discharge. Consult Acknowledgment - Thank you for your consult request.
--- NOTE | 2016-11-01 11:06 | NUR ---
PT IS STABLE WITH FULL RANGE OF AFFECT. PT HAS BEEN ATTENDING GROUPS ALL MORNING AND OUT IN THE COMMUNITY, INTERACTING WITH PEERS.STAFF MEMBERS. PLEASANT AND APPROPRIATE TO UNIT. VS ARE STABLE AND PT DENIES ANY SI/HI TO THIS MHW.
[2016-11-01 12:36] VITALS: BP 138/75
--- NOTE | 2016-11-01 13:34 | NUR ---
PT SEEN BY DR MYRICK FOR CARDIAC CONSULT. RECOMMENDATIONS REPORTED TO DR DESAI WHO ASKS THAT WE NOTIFY THE PSYCHIATRIST FOR ORDERS
--- NOTE | 2016-11-01 13:42 | SOCIAL WORKER PROG NOTE PSYCH ---
Social Work Progress Note Progress Note Attempted to complete review left message with Sarah at [facility] [phone] ext. [phone] His Mother is coming in for a family session at 3:30 on Monday call her if this wont work. He would like to return to [facility] and Dr. Harris upon discharge. Pt contacted his work/boss to inform him that he would not be coming into work this week. Pt was flat, depressed but stated he feels "good", it feels good to be doing nothing.
[2016-11-01 15:46] VITALS: BP 145/81
--- NOTE | 2016-11-01 17:01 | CP SOUTH PROGRESS NOTE PSYCH ---
Psych (Inpt) Progress Note Progress Note Include the following elements, when applicable: Involvement in the active treatment of the patient with behavioral observations of the patient and the patient's response to the treatment. Review of the ongoing treatment process in the context of the treatment plan. Indication of how multi-disciplinary staff members are carrying out the treatment plan. Plans for future interventions and recommendations for revision of the treatment plan. Liaison with other physicians/providers. Progress Note: PSYCHIATRIST NOTE, 11/01/2016: I assumed the care of patient this morning, discussed his presentation and progress to date, current mental status, treatment and discharge planning with staff team in the daily morning ITTM. I am familiar with this patient from his [facility] admission in 2013; prior to that he had begun a harrowing suicide attempt, tied a noose around his neck and stood on a balcony; only his mother's intervention prevented his suiciding at that time; from review of the more recent record today I noted at least two separate references to him talking about hanging himself and/or having a noose in his possession; clearly, this patient is a significant long-term suicide risk and deserves every chance to have his Niwot prophylaxis optimalized; serum Niwot level since admission, on 1,800mg of Niwot daily was only 0.5mEq/L; his treating outpatient psychiatrist, Dr. Harris, has noted the difficulty in establishing a therapeutic Niwot concentration and has actually pushed the dose to as high as 2,100mg/day; after discussion with patient today he and I decided to continue the current dose but try switching over from Niwot carbonate to Lithobid; however, we may still have to titrate up to a higher dose. Patient had previously been on Tegretol; he denies having ever been on Depakote ER. Failing attempt to increase current Niwot level effectively, addition of one of the those mood-stabilizers could also be an option. Patient cites increased pressure at [employer] (losing workers who have not been replaced) and his father's failing health as recent/current stressors; he denies being in a relationship at this time; problems related to girlfriends/fiancees have in the past precipitated suicidality. Patient notes being calmer and less depressed since admission, feeling safe on [facility]. Patient was seen in Cardiology consultation by Dr. Rob this morning due to report of "atrial flutter" on EKG; in his consultation note he confirmed that the previous report was not substantiated per his evaluation but did state that patient might benefit from low dose lisinopril (10mg/day) for borderline hypertension; however, patient's blood pressure readings yesterday and today have been normal to only mildly/borderline elevated yesterday and today through 4pm; therefore, once psychotropic medication changes have been finalized and patient discharged he may f/u with Dr. Rob in the latter's office, as per latter's suggestion in consult note from today. 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 Patient denies experiencing on Rexulti the dizziness he had previously attributed to Abilify.
[2016-11-01 19:44] VITALS: BP 142/79
--- NOTE | 2016-11-01 20:36 | NUR ---
PT IS CALM, COOPERATIVE WITH STAFF AND PEERS, AND COMPLIANT WITH UNIT RULES. PT IS OFTEN IN MILIEU, STAYING WITHIN THE PERIPHERY, SLIGHTLY WITHDRAWN/ISOLATIVE, BUT WILL INTERACT WHEN DIRECTLY ENGAGED. MOOD IS STABLE, AFFECT IS SLIGHTLY CONSTRICTED, COMMUNICATION IS ORGANIZED AND APPEARS NORMAL IN ALL RESPECTS, AND APPETITE IS NORMAL. PT DENIES SI AT THIS TIME.
[2016-11-02 07:43] VITALS: BP 130/78
[2016-11-02 12:24] VITALS: BP 141/81
--- NOTE | 2016-11-02 13:26 | NUR ---
PT IS COMPLIANT AND COOPERATIVE. MOOD IS STABLE WITH A FULL RANGE OF AFFECT. PT DENIES SI AT THIS TIME, NO COMPLAINTS OFFERED. PT IS PRESENT IN THE COMMUNITY AND INTERACTING WELL WITH PEERS AND STAFF. PT IS ATTENDING GROUPS. VITALS ARE STABLE, APPETITE IS GOOD.
--- NOTE | 2016-11-02 14:17 | SOCIAL WORKER PROG NOTE PSYCH ---
See Addendum Social Work Progress Note Progress Note Rescheduled Family meeting with Mom for 1:30pm today. Ang's Mom and Sister came in for the meeting. Discussed the medication changes made since his hospitalization. Ang feels hopeful that this will help. He is reporting that he feels well, he feels calmer. Denies any SI. Denies urges to drink. Stated he has not had an alcohol problem in the past and does not believe that his recent drinking is a problem. Mother confirmed that this has not been an issue and didn't seem to be of concern. Ang is anxious to get back to work soon. He is hoping to leave the hospital tomorrow or Monday. Discussed safety plan. Mom plans to stay with Ang at his home until he is feeling ok. Mom seems to feel ok with Ang coming out of the hospital on Monday. One trigger for Ang is loneliness. His Mom reports that he really would like to be in a relationship with a significant other. 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 He reports having goals, but feels that he needs the medications to help him maintain stability and motivation or else he doesn't feel that he can work towards his goals. Talked about setting small goals each day. Ang wants to continue in outpatient with Dr. Harris and see Charlene Sims. Called Charlene and left a message to reschedule his appt. for tomorrow.
[2016-11-02 15:59] VITALS: BP 142/88
--- NOTE | 2016-11-02 19:08 | CP SOUTH PROGRESS NOTE PSYCH ---
Psych (Inpt) Progress Note Progress Note Include the following elements, when applicable: Involvement in the active treatment of the patient with behavioral observations of the patient and the patient's response to the treatment. Review of the ongoing treatment process in the context of the treatment plan. Indication of how multi-disciplinary staff members are carrying out the treatment plan. Plans for future interventions and recommendations for revision of the treatment plan. Liaison with other physicians/providers. Progress Note: PSYCHIATRIST NOTE, 11/02/2016: I discussed this patient's progress to date, current mental status, treatment and discharge planning with staff team in the daily morning ITTM and also met with him again myself in individual session on this date. I attempted to reach field representatives director, Dr. Rob, about his recommendation for the JULIUS inhibitor lisinopril given patient's concomitant [place] maintenance therapy; however, I was not able to reach Dr. Rob because his was engaged in cardiac catherizations at [facility] at that time; I left a detailed message with his office but did not receive a call back from him by 4:30pm. Patient is tolerating well the switchover from [place] carbonate to Lithobid ( [place] SR) at the same daily dose of 1,800mg; I plan to draw a repeat [place] level tomorrow AM, 11/03/2016. During individual session with me, patient noted that the meeting today with his mother had gone well and that she would be staying with him for an interval post-discharge which may be tomorrow if current rate of improvement in mood continues. Patient is happy with the brexpiprazole (3mg) and Pristiq (100mg) and denies any problems with them. He is planning to continue treatment with Dr. Harris in [facility], as well as increasing the frequency of his visits with Charlene Sims LCSW, for the present to twice a week. Patient is feeling comfortable to discharge tomorrow, 11/03/2016.
[2016-11-02 19:28] VITALS: BP 149/81
--- NOTE | 2016-11-02 20:54 | NUR ---
PT IS VISIBLE ON UNIT, HAD VISITOR THROUGHOUT EVENING. WILL ISOLATE IN ROOM AT TIMES. MINIMAL INTERACTION WITH PEERS AND STAFF. COOPERATIVE AND COMPLIANT WITH STAFF. NO COMPLAINTS OR SI REPORTED. PT HAS A STABLE MOOD AND FULL RANGE AFFECT.
--- NOTE | 2016-11-03 06:24 | NUR ---
PT APPEARED TO SLEEP WELL. LABS IN THE AM.
--- NOTE | 2016-11-03 06:26 | NUR ---
PT WITH APPARENT WITHDRAWALS. SHE 1MG ATIVAN AT 1815 FOR ELEVATED PULSE AND WITHDRAWAL SYMPTOMS, 1MG ATIVAN AT 2000, 2MG AT 2130, AND 1MG AT 2330. PT WAS WITHOUT ELEVATED VITAL SIGNS AFTERWARDS, MINIMAL CIWAs. PT APPEARED TO SLEEP WELL AFTER 0030.
[2016-11-03 07:39] VITALS: BP 138/77
--- NOTE | 2016-11-03 09:13 | SOCIAL WORKER PROG NOTE PSYCH ---
Social Work Progress Note Progress Note Ang is doing well today. Feels his mood is stable and thoughts are good. Looking forward to discharging today. He will meet with his therapist Charlene Sims at 4pm today. He will be attending a friend's birthday libertarian on Monday, doing some grocery shopping and doing some housework over the weekend. Mom will be staying with him. 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 We talked about if he should start drinking again to reach out to his therapist and talk about what is happening. He is pleased that she can see him twice a week. Ang has his car here and will drive home. Asked for a letter for work, which was provided. Faxed Charlene Sims and ADILENE GALINDO his W-10.
--- NOTE | 2016-11-03 09:26 | NUR ---
PT IS SCHEDULED FOR D/C TO [facility] TODAY. HE REPORTS AND DEMONSTRATES IMPROVEMENT IN HIS MOOD AND HIS THOUGHTS. HE DENIES ANY THOUGHTS OF SUICIDE OR SELF HARM. HE DENIES AH. HE STATES HE SEES A PRIVATE THERAPIST AND EXPECTS TO SEE HER TONIGHT. HE HAS MED MANAGEMENT WITH DR ROSADO AT [facility].PT VERBALIZES A GOOD UNDERSTANDING OF HIS MED REGIME AND TREATMENT PLAN. PT IS GIVEN EDUCATION R/T MANAGING HIS MOOD D/O AND ON PREVENTING SUICIDE
[2016-11-03 12:05] VITALS: BP 126/67
[2016-11-03] MEDS ORDERED: GABAPENTIN300 M2 PO (13:02)
[2016-11-03] MEDS ORDERED: LISINOPRIL10 M1 PO (13:26)
[2016-11-03] MEDS ORDERED: LITHIUM CARBON450 M1 PO (13:30)
--- NOTE | 2016-11-03 13:40 | CP SOUTH PROGRESS NOTE PSYCH ---
Psych (Inpt) Progress Note Progress Note Include the following elements, when applicable: Involvement in the active treatment of the patient with behavioral observations of the patient and the patient's response to the treatment. Review of the ongoing treatment process in the context of the treatment plan. Indication of how multi-disciplinary staff members are carrying out the treatment plan. Plans for future interventions and recommendations for revision of the treatment plan. Liaison with other physicians/providers. Progress Note: PSYCHIATRIST NOTE (DISCHARGE), 11/03/2016: I discussed this patient's progress to date, current mental status, treatment and discharge plans with staff team today in the daily morning ITTM and met with him again myself in individual session prior to discharging him to resume his outpatient treatment with Penelope Harris M.D., and Charlene Sims LCSW; he is very pleased that the latter has agreed to see him twice a week for the present (arrangement made partly due to difficulty being able to attend [facility], plus the large co-pays of $80.00/session). Patient is currently euthymic, brighter in affect, showing no evidence of suicidal or homicidal ideation, plans , intent or impulses. Though patient's [place] level on 1800mg/day of Eskalith, 450mg (900mg 2x/day) this morning was still only 0.5mEq/L, given that the medical team started patient on an JULIUS inhibitor (lisinopril, 10mg/day) this morning and this class of anti-hypertensive is known to increase serum [place] levels (?through competition for renal excretion) I will not increase dose of [place] going out the door today but would recommend close monitoring of Li+ levels as long as patient continues on lisinopril; patient promised me today he would make a follow-up appointment to see counseling specialist, Dr. Rob, in latter's private office as soon as possible. Patient will continue on brexpiprazole, 3mg (has not been causing the dizziness patient had experienced while taking Abilify ) and Pristiq, 100mg/day, denies any side effects on either and feels they are helping and has a supply at home. I have called to [facility] ([facility]) on date of discharge: Eskalith CR, 450mg: ii 2x/day (1,800mg/day); #56 with ONE refill (mood stabilization) Neurontin, 300mg: i 3x/day PRN anxiety/discomfort (up to 900mg daily); #42 with ONE refill I also called in: lisinopril, 10mg: i daily in AM (10mg/day); #14 with ONE refill (blood pressure management) (continued use of this medication will be determined by counseling specialist, Bernardo Rob M.D./Ph.D.)
--- NOTE | 2016-11-03 13:41 | DISCHARGE SUMMARY REPORT-PSYCH ---
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 " Psy Discharge Primary Diag: Bipolar Disorder Hospital Course Significant Lab Findings: glucose = 95; sodium = 136; WBC = 12.9, RBC = 4.63, HGB = 13.9, HCT = 41.6; lymphs decreased to 17.2%, grans 73.7% with gran abs increased to 9.5%; CARLA = less than 10.0; urine for drugs of abuse--negative; EKG (10/31/2016)--sinus rhythm with no significant change since previous tracing on 03/07/2017 (for further details of all normal range laboratory data during this admission, see the electronic medical record) Course Complications: none Consultations: patient was seen for an admissoin medical H&P by Eduardo Eid M.D., and followed medically throughout this admission by the [facility] attending physicians; patient was also seen in cardiology consultation by Bernardo Myrick M.D., PhD., who concluded that the patient has no electrocardiographic evidence of atrial flutter or palpitations. He noted patient's mildly increased blood pressure and recommended weight loss, a low sodium diet and adding lisinopril, 10mg, to medication regimen. Dr. Myrick told patient he should f/u in his office following discharge from [facility]. Allergies: Coded Allergies: aripiprazole (From [facility]) (REALLY BAD DIZZY SPELLS PER PT 10/28/16) Hospital Course/TX Response: (see also detailed daily Hossein, SENIOR MANUFACTURING ENGINEER and HOISTER progress notes in electronic medical record) Patient was soon presenting as calm, cooperative and pleasant. He experienced gradual widening and brightening of affect and slow improvement in mood with complete resolution of presenting suicidal ideation with a plan to hang himself (which he had had in the past as well; see in particular his presentation for admission to [facility] in 2013). Given repeated serious suicidality and very lethal means we believed patient deserved every chance of having an adequate trial of Redfield augmentation/prophylaxis at sufficient serum concentrations; however, it had proved difficult to establish a sufficient Redfield level prevously on an outpatient basis even when dose was titrated up to 1,800-2,100mg /day. Patient was started during this admission on 1,800mg of Redfield daily, switched from carbonate to longacting form. Further augmentation with Tegretol (which patient had been on previously with apparent equivocal benefit) or Depakote which he had not been on in the past were considered. Initial recommendation was for patient to f/u in [facility], but he told us that the $80.00 a session co-pays were too much for him to afford and no other source of finance or adjustment of fees was possible. Patient determined to continue his outpatient treatment with Penelope Harris M.D. and increase therapy appointments privately with Charlene Sims LCSW, from once to twice a week. Though serum Redfield concentration did not go above 0.5mEq/L during this admission despite the relatively high dose therapy, since the medical team/ Dr. Myrick had started patient on lisinopril during this admission and this JULIUS inhibitor can increase Redfield levels when co-administered with that medication, we decided to continue current Redfield dose and recommend continued monitoring of levels going forward. Patient's mood improved significantly and on date of discharge there was no evidence of suicidal or homicidal ideation, plans, intent or impulses and patient was well aware of his safety plan should he ever in future become concerned that he might be at risk to harm himself or others. Discharge HBIPS - Tobacco Use Treatment Offered Post DC Medications Offered: NA-No Tob Use >30 days Post DC Tobacco Treatment Plan: NA-No Tobacco use >30days - EtOH/Drug Use D/O Treatment Offered Post DC Medications Offered: NA-No EtOH/Drug Use D/O Post DC EtOH/SubAbuse TX Plan: NA-No EtOH/Drug Use D/O Metabolic Screening - Screen if on a Neuroleptic Medication - Metabolic screening should include: - Blood Pressure, BMI, Glucose or Hgb A1c, & a - Lipid profile from within the past 365 days. Metabolic Screening () Not Applicable, patient not on a neuroleptic. OR ([X]) Patient on a neuroleptic(s) . Enter below results for Glucose or Hemoglobin A1C, and lipid panel if obtained during the last 365 days. BMI: 33.100 Blood Pressure: 126/67 Laboratory Results (If applicable): glucose = 95 (on 10/28/2016) cholesterol = 162 triglycerides = 56 HDL = 65 LDL = 86 (all drawn 10/21/2016) Discharge Instructions General Discharge Information Discharge Medications: Discharge Medications (dose, route, frequency, indications): I called into [facility] on [facility], [place], [place]., on date of discharge: Eskalith CR, 450mg; ii 2x/day (1,800mg daily); #56 with ONE refill (mood stabilization) Neurontin, 300mg: i 3x/day PRN discomfort/anxiety (up to 900mg daily); 42 with ONE refill Patient has adequate supplies of the following medications at home to take as: Pristiq, 100mg daily Rexulti, 3mg daily I also called in: lisinopril, 10mg daily (10mg/day); #14 with ONE refill (blood pressure reduction/managment) (continued use of lisinopril will be determined by disk sander, Dr. Myrick, who patient will see in latter's office) Multiple Neuroleptics: ([X]) Not Applicable OR Document below three failed attempts at monotherapy, or a plan to taper to monotherapy, or augmentation of Clozapine. () Patient's Diet: restrict salt (per Dr. Myrcik) Patient's Activity: without restrictions DC Disposition: to home (with mother who will be staying with him there) Recommendations: I would recommend very close monitoring of serum Redfield levels (particularly given that patient was started on lisinopril during this admission by Dr. Myrick; this JULIUS inhibitor may increase Redfield levels) and appropriate interval lab testing; consideration might be given to augmenting Li+ prophylaxis with Tegretol or Depakote. If patient fails to stabilize sufficiently on an outpatient basis, I would recommend referral to the [facility] health IOP be advised once again. Patient should be sure to f/u with disk sander, Dr. Myrick, with regard to continuing on treatment with lisinopril with concomitant ongoing Lithiuim therapy/prophylaxis. Referred To: Patient was referred to resume his outpatient treatment with Penelope Harris M.D. , who he will continue to see monthly and continue ongoing outpatient therapy with Charlene Sims with initial appointment at 4pm on date of discharge, , at 4pm and twice a week thereafter. Patient will also make an outpatient f/u appointment with disk sander, Dr. Myrick, who started him on anti-hypertensive therapy with lisinopril during this admission; this JULIUS inhibitor may increase serum Redfield levels. Copies To: ALONZO ASHLEY,CONCETTA MYRICK MD PhD,BERNARDO Osito
== END 2016-11-03 14:30 | DRG 885 ==
LOC: ENRESERVTM → ENRESERVDT → ERH 17:12 → CP SOUTH 19:59 → ERHI 19:59 → CP SOUTH 20:44
PROVIDERS: Emergency Medicine; ADMIT Psychiatry & Neurology Psychiatry
DX: F31.60 Bipolar disorder, current episode mixed, unspecified (principal); R03.0 Elevated blood-pressure reading, without diagnosis of hypertension
CPT/HCPCS: 36415; 80307; 81001; 93005; 93010; G0480; Q2036

== ENCOUNTER 2018-03-01 19:22 | Observation (INO) | payer OTHER ==
[~2018-03-01] VITALS: Ht 193 cm; Wt 122.5 kg
[~2018-03-01 19:22] MED LIST changes: +GABAPENTIN300 M2 PO; +LISINOPRIL10 M1 PO; +LITHIUM CARBON300 M4 PO; +LITHIUM CARBON450 M1 PO; +PRISTIQ ER100 MG PO; +REXULTI3 MG PO
--- NOTE | 2018-03-01 19:44 | ED NEURO DEFICIT/STROKE ---
History of Present Illness General Chief Complaint: General Adult Stated Complaint: "LT SIDE LIP DROOPING" Source: patient, Exam Limitations: no limitations Vital Signs & Intake/Output Vital Signs & Intake/Output Vital Signs Date Time Temp Pulse Resp B/P B/P Pulse O2 O2 Flow FiO2 Mean Ox Delivery Rate 03/01 2209 87 18 137/81 100 Room Air 03/01 1947 Room Air 03/01 1938 84 16 144/85 98 Room Air Allergies Coded Allergies: aripiprazole (From [facility]) (REALLY BAD DIZZY SPELLS PER PT 10/28/16) Reconcile Medications Divalproex Sodium (Depakote) 500 MG TABLET. 1 TAB PO QPM MENTAL HEALTH ( Reported) Lamotrigine (Lamictal) (Unknown Strength) TABLET (Unknown Dose) PO QPM MENTAL HEALTH (Reported) Sertraline HCl 100 MG TABLET 1 TAB PO QPM MENTAL HEALTH (Reported) Triage Note: PT TO ER C/C MINIMAL LEFT SIDED FACIAL DROOP FOR UNKNOWN AMOUNT OF TIME. NOTICED AT DR. ROSADO'S OFFICE WHEN PATIENT WAS BEING SEEN FOR AN UNRELATED MEDICAL REASON. Triage Nurses Notes Reviewed? yes HPI: Pt presents for eval of left facial droop noted by his psychiatrist about 3 hours ago. pt does not know actual time of onset. He states he doesn't recall looking in the mirror so as to have noted a facial droop. Vaguely aware of left mouth droop and mild slurred speech. His confirm the facial droop when she saw him about 30-45 minutes ago. There is been no apparent visual disturbances, expressive aphasia or motor weakness. Past History Travel History Traveled to [place] past 21 day No Medical History Any Pertinent Medical History? see below for history Neurological: NONE EENT: NONE Cardiovascular: hypertension Respiratory: NONE Gastrointestinal: umbilical hernia Hepatic: NONE Renal: NONE Musculoskeletal: NONE Psychiatric: anxiety, BIPOLAR DEPRESSION ADD Endocrine: NONE Blood Disorders: NONE Cancer(s): NONE History of MRSA: No History of VRE: No History of CDIFF: No Influenza Vaccine: 05/14/15 Surgical History Surgical History: non-contributory Psychosocial History Who do you live with Patient/Self Services at Home None What is your primary language Welsh Tobacco Use: Current Not Daily Family History Family History, If Any: FATHER Relation not specified for: FH: hemochromatosis Hx Contributory? No Review of Systems Review of Systems Constitutional: Reports: no symptoms. EENTM: Reports: no symptoms. Respiratory: Reports: no symptoms. Cardiovascular: Reports: no symptoms. GI: Reports: no symptoms. Genitourinary: Reports: no symptoms. Musculoskeletal: Reports: no symptoms. Skin: Reports: no symptoms. Neurological/Psychological: Reports: see HPI. Hematologic/Endocrine: Reports: no symptoms. Immunologic/Allergic: Reports: no symptoms. All Other Systems: Reviewed and Negative Physical Exam Physical Exam General Appearance: SEE BELOW Cranial Nerves: SEE BELOW Comments: Gen.: Well-nourished, well-developed, no acute respiratory distress. Head: Normocephalic, atraumatic. Eyes: Normal inspection bilaterally, PERRLA, EOMI Ears: Normal inspection bilaterally Nose: Normal inspection Throat/mouth : Moist mucosa Neck: Supple, full range of motion, no goiter, no carotid bruits, equal carotid pulses Heart: Regular rate and rhythm, no murmurs rubs or gallops Lungs: Clear to auscultation bilaterally with normal air entry Chest: Nontender Back: Normal range of motion Abdomen: Nondistended, normal bowel sounds Extremities: Normal range of motion grossly, equal radial pulses, no cyanosis clubbing or edema, equal hand grasp, no pronator drift, no dysmetria Neurologic: Mild left mouth droop , speech is mildly slurred but without apparent aphasia, gait is stable Skin: warm and dry Psychiatric: Calm, cooperative, no apparent delusions or hallucinations Core Measures CVA/TIA Diagnosis: Yes NIH Stroke Scale NIH Stroke Scale Response Value Level of Consciousness alert 0 LOC Questions answers both correctly 0 LOC Commands obeys both correctly 0 Best Gaze normal 0 Visual Coreas partial hemianopia 1 Facial Paresis minor 1 Motor Arm - Left no drift 0 Motor Arm - Right no drift 0 Motor Leg - Left no drift 0 Motor Leg - Right no drift 0 Limb Ataxia no ataxia 0 Sensory normal 0 Best Language no aphasia 0 Dysarthria mild/mod slurring words 1 Extinction and Inattention no neglect 0 Total 3 Swallow Evaluation Pass Swallow eval date 03/01/18 Swallow eval time 2158 Sepsis Present: No Sepsis Focused Exam Completed? No Progress Differential Diagnosis: cva, tia, HYPOGLYCEMIA, Rivers'S PALSY Plan of Care: Orders Procedure Date/time Status PARTIAL THROMBOPLASTIN TIME 03/01 1943 Complete PROTHROMBIN TIME 03/01 1943 Complete COMPREHENSIVE METABOLIC PANEL 03/01 1943 Complete CBC WITHOUT DIFFERENTIAL 03/01 1943 Complete EKG 03/01 1943 Active Current Medications Sig/Albert Start time Last Medication Dose Stop Time Status Admin Aspirin 81 MG ONCE ONE 03/01 2215 UNVr 03/01 (Aspirin) 03/01 Laboratory Tests 03/01/181956: Anion Gap 10, Estimated GFR > 60, BUN/Creatinine Ratio 18.9, Glucose 96, Calcium 9.5, Total Bilirubin 0.3, AST 23, ALT 33, Alkaline Phosphatase 71, Total Protein 6.4, Albumin 4.0, Globulin 2.4, Albumin/Globulin Ratio 1.7, PT 11.2, INR 1.03, APTT 31, CBC w Diff NO MAN DIFF REQ, RBC 4.58 L, MCV 92.3, MCH 31.2 H, MCHC 33.8, RDW 12.2, MPV 9.2, Gran % 63.7, Lymphocytes % 24.0, Monocytes % 7.6, Eosinophils % 4.4, Basophils % 0.3, Absolute Granulocytes 5.6, Absolute Lymphocytes 2.1, Absolute Monocytes 0.7 H, Absolute Eosinophils 0.4, Absolute Basophils 0 Diagnostic Imaging: Discussed w/RAD: CT Scan. Radiology Impression: PATIENT: VIV MURRELL PRESENT AGE: 32 PATIENT ACCOUNT NO: [id number] : 86 LOCATION: [facility] ORDERING PHYSICIAN: Yovanny Rivers MD SERVICE DATE: 03/01/18 EXAM TYPE: CAT - CT HEAD WO IV CONTRAST EXAMINATION: CT HEAD WITHOUT CONTRAST CLINICAL INFORMATION: Left facial droop. COMPARISON: None TECHNIQUE: Contiguous axial imaging was performed from the skull base to vertex without intravenous administration of contrast. DLP: 636.66 mGy-cm FINDINGS: There is no evidence of acute intracranial hemorrhage or territorial infarction. No abnormal mass effect or midline shift is seen. Barnett to white matter differentiation is well preserved. No extra-axial fluid collections are identified. The ventricles are normal in size. There is no abnormal attenuation within the brain parenchyma. The osseous structures and soft tissues are normal. The mastoid air cells and visualized portions of the paranasal sinuses are well aerated. IMPRESSION: No acute intracranial pathology. DICTATED BY: Khoa Sandy MD DATE/TIME DICTATED:2000 STERILE PROCESSING TECH:RAD.JEREZ DATE/TIME TRANSCRIBED:03/01/182000 CONFIDENTIAL, DO NOT COPY WITHOUT APPROPRIATE AUTHORIZATION. <Electronically signed in Other Vendor System> SIGNED BY: Khoa Sandy MD 03/01/182005, PATIENT: VIV MURRELL PRESENT AGE: 32 PATIENT ACCOUNT NO: [id number] : 86 LOCATION: [facility] ORDERING PHYSICIAN: Yovanny Rivers MD SERVICE DATE: 03/01/18 EXAM TYPE: CAT - CT HEAD ANGIOGRAM; CT NECK ANGIOGRAM EXAMINATION: CT ANGIOGRAM NECK WITH CONTRAST CT ANGIOGRAM BRAIN WITH CONTRAST CLINICAL INFORMATION: Left facial droop. Arterial embolism/ thrombosis. COMPARISON: Head CT performed just earlier. TECHNIQUE: Test bolus sequences followed by intravenous administration 95 mL of Optiray 320. Helical imaging was performed in the axial plane from the thoracic inlet to the skull vertex. Delayed postcontrast imaging of the head was also performed. The data was processed at the operating room surgical technologist workstation for generation of MIP sequences. Angled MIPs and volume rendered reformatted images were also generated at an offline 3D workstation. Stenoses are assessed in accordance with NASCET criteria unless otherwise indicated. DLP: 2007 mGy-cm FINDINGS: Postcontrast head CT: There is no intracranial hemorrhage, large acute infarction, or mass lesion. The ventricles are normal in size and configuration without evidence of hydrocephalus. Visualized paranasal sinuses and mastoid air cells are clear. No filling defect is seen within the major dural venous sinuses. Neck CTA: There is a three-vessel left-sided aortic arch with no significant stenosis of the great vessel origins. The common and internal carotid arteries are normal in course and caliber. Both vertebral arteries are widely patent throughout their extracranial cervical course. Head CTA: No intracranial aneurysm is seen. The intracranial internal carotid arteries appear normal. The anterior cerebral artery, anterior communicating artery, and middle cerebral arteries appear normal. The intradural vertebral arteries and basilar artery appear normal. The posterior cerebral arteries appear normal. A small left posterior communicating artery is noted. Non-vascular findings: The visualized lung apices are clear. The cervical spine is intact. No mass or fluid collection is identified within the neck. The thyroid gland is unremarkable. IMPRESSION: Postcontrast CT head: No intracranial hemorrhage or large acute infarction. CTA neck: No hemodynamically significant stenosis in the major arteries of the neck. CTA head: No large vessel occlusion or significant stenosis within the intracranial circulation. DICTATED BY: Sally Das MD DATE/TIME DICTATED:03/01/182108 STERILE PROCESSING TECH:MIKE DATE/TIME TRANSCRIBED:03/01/182108 CONFIDENTIAL, DO NOT COPY WITHOUT APPROPRIATE AUTHORIZATION. <Electronically signed in Other Vendor System> SIGNED BY: Sally Das MD 03/01/182121 Initial ED EKG: NSR, rate (75) Prior EKG: unchanged Comments: Patient's symptoms do not involve the forehead so I doubt Rivers's palsy. Departure Departure Disposition: STILL A PATIENT Condition: Stable Clinical Impression Primary Impression: TIA (transient ischemic attack) Referrals: Patient Has No Primary Care Dr (PCP/Family) Departure Forms: Customer Survey General Discharge Information Observation Note Spoke With: China Reyes MD Patient In: Non-ED OBS Care Area Rationale for Observation: My rational for observation is as follows patient's clinical presentation is consistent with a TIA. This places him at risk of a future stroke with associated morbidity and mortality. Given this I feel he requires hospitalization for an expedited evaluation of potential reversible causes of his TIA including carotid artery disease and cardioembolic phenomenon. In addition patient's medications should be optimized and neurology consultation considered. In addition follow-up MRI scan and echocardiogram along with cardiology consultation should be considered. Patient to be placed on a youth nutritional monitor to assess for possible intermittent dysrhythmias. .
[2018-03-01] MEDS ORDERED: DEPAKOTE500 M1 PO (19:46)
[2018-03-01] MEDS ORDERED: LAMICTAL100 M2 PO (19:46)
[2018-03-01] MEDS ORDERED: SERTRALINE HCL100 MG PO (19:46)
--- NOTE | 2018-03-01 20:06 | CT SCAN REPORT ---
EXAMINATION: CT HEAD WITHOUT CONTRAST CLINICAL INFORMATION: Left facial droop. COMPARISON: None TECHNIQUE: Contiguous axial imaging was performed from the skull base to vertex without intravenous administration of contrast. DLP: 636.66 mGy-cm FINDINGS: There is no evidence of acute intracranial hemorrhage or territorial infarction. No abnormal mass effect or midline shift is seen. Barnett to white matter differentiation is well preserved. No extra-axial fluid collections are identified. The ventricles are normal in size. There is no abnormal attenuation within the brain parenchyma. The osseous structures and soft tissues are normal. The mastoid air cells and visualized portions of the paranasal sinuses are well aerated. IMPRESSION: No acute intracranial pathology.
[2018-03-01 20:14] LABS: ABSOLUTE BASOPHIL COUNT 0 /CUMM (0.0-0.2); ABSOLUTE EOSINOPHIL COUNT 0.4 /CUMM (0.0-0.7); ABSOLUTE GRANULOCYTE CT 5.6 /CUMM (1.4-6.5); ABSOLUTE LYMPH COUNT 2.1 /CUMM (1.2-3.4); ABSOLUTE MONOCYTE COUNT 0.7 /CUMM (0.10-0.60); BASOPHIL % 0.3 % (0.0-2.0); EOSINOPHIL % 4.4 % (0-5); GRANULOCYTE % 63.7 % (42.2-75.2); HEMATOCRIT 42.3 % (42-52); MEAN CORPUSCULAR HGB 31.2 PG (27.0-31.0); MEAN CORPUSCULAR HGB CONC 33.8 G/DL (33.0-37.0); MEAN CORPUSCULAR VOLUME 92.3 FL (80.0-94.0); MEAN PLATELET VOLUME 9.2 FL (7.4-10.4); PLATELET COUNT 242 /CUMM (130-400); RBC DISTRIBUTION WIDTH 12.2 % (11.5-14.5); RED BLOOD CELL CT 4.58 /CUMM (4.70-6.10); WHITE BLOOD CELL COUNT 8.8 /CUMM (4.8-10.8)
[2018-03-01 20:20] LABS: PT 11.2 SEC (9.4-12.5); PTT 31 SEC (25-37)
--- NOTE | 2018-03-01 21:22 | CT SCAN REPORT ---
EXAMINATION: CT ANGIOGRAM NECK WITH CONTRAST CT ANGIOGRAM BRAIN WITH CONTRAST CLINICAL INFORMATION: Left facial droop. Arterial embolism/thrombosis. COMPARISON: Head CT performed just earlier. TECHNIQUE: Test bolus sequences followed by intravenous administration 95 mL of Optiray 320. Helical imaging was performed in the axial plane from the thoracic inlet to the skull vertex. Delayed postcontrast imaging of the head was also performed. The data was processed at the senior cytogenetic technologist workstation for generation of MIP sequences. Angled MIPs and volume rendered reformatted images were also generated at an offline 3D workstation. Stenoses are assessed in accordance with NASCET criteria unless otherwise indicated. DLP: 2007 mGy-cm FINDINGS: Postcontrast head CT: There is no intracranial hemorrhage, large acute infarction, or mass lesion. The ventricles are normal in size and configuration without evidence of hydrocephalus. Visualized paranasal sinuses and mastoid air cells are clear. No filling defect is seen within the major dural venous sinuses. Neck CTA: There is a three-vessel left-sided aortic arch with no significant stenosis of the great vessel origins. The common and internal carotid arteries are normal in course and caliber. Both vertebral arteries are widely patent throughout their extracranial cervical course. Head CTA: No intracranial aneurysm is seen. The intracranial internal carotid arteries appear normal. The anterior cerebral artery, anterior communicating artery, and middle cerebral arteries appear normal. The intradural vertebral arteries and basilar artery appear normal. The posterior cerebral arteries appear normal. A small left posterior communicating artery is noted. Non-vascular findings: The visualized lung apices are clear. The cervical spine is intact. No mass or fluid collection is identified within the neck. The thyroid gland is unremarkable. IMPRESSION: Postcontrast CT head: No intracranial hemorrhage or large acute infarction. CTA neck: No hemodynamically significant stenosis in the major arteries of the neck. CTA head: No large vessel occlusion or significant stenosis within the intracranial circulation.
--- NOTE | 2018-03-01 23:58 | History & Physical ---
ShekharyingxenaCheo 03/01/18 5227: General Information and HPI MD Statement: I have seen and personally examined VIV MURRELL and documented this H&P. The patient is a 32 year old M who presented with a patient stated chief complaint of [left sided facial droop]. Source of Information: patient Exam Limitations: no limitations History of Present Illness: The patient is a 32 years old gentleman with past medical history of bipolar disorder and boarderline HTN who is here with CC of left sided facial droop that was noticed by his psychiatrist this afternoon. He reports that he was at work today when he felt weakness in his left upper extremity and generalized fatigue. He also had lightheadedness at lunch time today. He reports a dull headache from this morning, Allergies/Medications Allergies: Coded Allergies: aripiprazole (From [employer]) (REALLY BAD DIZZY SPELLS PER PT 10/28/16) Home Med list Divalproex Sodium (Depakote) 500 MG TABLET.DR 5 TAB PO QPM bipolar (Reported) Lamotrigine (Lamictal) (Unknown Strength) TABLET (Unknown Dose) PO DAILY MENTAL HEALTH (Reported) Sertraline HCl 100 MG TABLET 1 TAB PO DAILY MENTAL HEALTH (Reported) Past History Travel History Traveled to [place] past 21 day No Medical History Neurological: NONE EENT: NONE Cardiovascular: hypertension Respiratory: NONE Gastrointestinal: umbilical hernia Hepatic: NONE Renal: NONE Musculoskeletal: NONE Psychiatric: anxiety, BIPOLAR DEPRESSION ADD Endocrine: NONE Blood Disorders: NONE Cancer(s): NONE History of MRSA: No History of VRE: No History of CDIFF: No Surgical History Surgical History: non-contributory Past Family/Social History Family History Relations & Conditions if any FATHER Relation not specified for: FH: hemochromatosis Psychosocial History Who Do You Live With? self Services at Home: None Primary Language: Macanese Functional Ability ADLs Independent: dressing, eating, toileting, bathing. Ambulation: independent IADLs Independent: shopping, housework, finances, food prep, telephone, transportation , medication admin. Core Measures/Misc (04/30) Cerebrovascular Accident CVA/TIA Diagnosis: Yes Swallow Evaluation Pass Sepsis (View protocol) If YES complete Sepsis Event Note If YES complete Sepsis Event Note Paco Johnson MD 03/01/18 5938: Review of Systems Review of Systems Constitutional: Reports: see HPI. Exam & Diagnostic Data Last 24 Hrs of Vital Signs/I&O Vital Signs Date Time Temp Pulse Resp B/P B/P Pulse O2 O2 Flow FiO2 Mean Ox Delivery Rate 03/02 0618 97.8 74 18 128/90 96 Room Air 03/02 0046 140/88 03/02 0035 98.4 63 18 168/90 96 Room Air 03/01 2209 87 18 137/81 100 Room Air 03/01 1947 Room Air 03/01 1938 84 16 144/85 98 Room Air Intake & Output 03/02 0800 03/02 0000 03/01 1600 Intake Total 120 0 Output Total Balance 120 0 Intake, Oral 120 0 Patient 122.47 kg 122.47 kg Weight Weight Reported by Patient Measurement Method Assessment/Plan As Ranked By This Provider Problem List: 1. Facial droop Core Measures/Misc (04/30) Acute Coronary Syndrome ACS Diagnosis: No Congestive Heart Failure Congestive Heart Failure Diagnosis No VTE (View Protocol) VTE Risk Factors Smoker No Mechanical VTE Prophylaxis d/t N/A MechProphylax Ordered No VTE Pharm Prophylaxis d/t NA PharmProphylax ordered Sepsis (View protocol) Sepsis Present: No If YES complete Sepsis Event Note If YES complete Sepsis Event Note Observation Initial Note - I have personally examined VIV MURRELL on 03/02/18 at 0033. The disposition of VIV MURRELL is uncertain at this time and before a determination can be made, he requires a period of observation for the following reasons: * Telemetry monitoring * Neurochecks * Neurology evaluation * Aspirin / Statin therapy Resident Review Statement Resident Statement: examined this patient, discussed with underwriting internship, agreed with underwriting internship, reviewed EMR data (avail) Other Findings: History of Present Illness 32 year old man with past medical history of bipolar disorder, depression, anxiety, ADD, and hypertension seen for evaluation of facial droop. Patient reports seeing his psychiatrist Dr. Harris this afternoon when around 4: 30 they noticed that patient had a left facial droop with some mild slurred speech. Patient denies noticing this but these findings were apparently seen by his who brought the patient to the ED. Patient admits to having some fatigue with mild headache and brief episodes of blurred vision over the past 24 hours. At work this morning he had some minor left arm weakness with tingling. He reports working outside a lot recently for the past two weeks and noticed a tick on him that did not bite him. He denies any sick contacts or new medications. He does admit to new urinary frequency. Review of Systems Otherwise he denies any current headache, fever, chills, blurred / double vision , lightheadedness, chest pain, shortness of breath, nausea, vomiting, diarrhea, abdominal pain, constipation, current numbness / tingling / weakness. Social History Patient smokes 2 -3 cigars per week and denies use of cigarettes, pipes, or chewing tobacco. He drinks approximately 6 beers per week. He denies any recreational drug use. He is compliant with his medications. He is independent in all ADLs/IADLs. Objective Vitals- HR 84-87, RR 16-18, BP 137-144 / 81-85, O2 98-100% on room air Physical exam -General: well developed, obese young man in no acute distress -HEENT: NCAT, PERRLA, EOMI, anicteric sclera, MMM -Neck: Supple, no JVD, trachea midline -Cardio: Normal S1/S2 w/o m/g/r; RRR -Pulm: CTA bilaterally -Abd: Soft, NT, ND, BS+ -Neuro: Patient is awake and alert, speech is clear, follows commands, there is mild left sided facial droop with weakness of left eyelid without obvious forehead involvement or flattening of nasolabial folds, CN otherwise intact, coordination and sensation intact, hearing intact bilaterally, gait not assessed , strength 5/5 x4 without pronator drift, DTRs diffusely intact, gait not assessed, patient passed bedside swallow evaluation -Extremities: normal pulses Labs / Imaging / Studies -CBC: WBC 8.8, HGB 14.3, HCT 42.3, PLT 242 -BMP: Na 141, K 4.1, CL 100, CO2 31, BUN 17, Cr 0.9, AG 10, Glu 96 -LFT: within normal limits -Misc: INR 1.03 -EKG: normal sinus rhythm -CT head without IV contrast: * No acute intracranial pathology -CTA Head / Neck: * Postcontrast CT head: No intracranial hemorrhage or large acute infarction. * CTA neck: No hemodynamically significant stenosis in the major arteries of the neck. * CTA head: No large vessel occlusion or significant stenosis within the intracranial circulation. Assessment 32 year old man with multiple medical problems significant for Bipolar on Depakote, obesity, hypertension, and smoking seen for evaluation of vague neurologic complaints and mild facial droop. Patient current denies any symptoms other than his facial droop and left eye weakness. Vitals are significant only for a mildly elevated blood pressure. Physical exam redemonstrates the facial droop with left eye weakness without any obviosu forehead involvement / flattening of the nasolabial folds but with an otherwise nonfocal neurologic examination. Labs including CBC, BMP, LFT, INR are within normal limits. EKG is NSR. CT imaging of the head is negative for any acute intracranial pathology. Patient received low dose oral aspirin in the ED. Clinically patient appears to have new onset left facial droop with left eye muscle involved and questionable forehead involved for which differentials include bells palsy versus TIA/CVA. He does have risk factors such as male gender, hypertension, obesity, and smoking for cerebrovascular disease however does not have any significant neurologic deficits. Patient is to be placed under observation on the telemetry floor for telemetry monitoring, neurochecks, empiric aspirin / statin therapy, neurology consultations, and lyme titer check. Problem List -New left sided facial droop with left eye weakness -Bipolar depression, on Depakote / Lamictal / Sertraline -Anxiety -ADD -Hypertension -Obesity -Current tobacco user, 2-3 cigars / week Plan -Place under observation on telemetry floor -Telemetry monitoring -Neurochecks -Aspirin 81 mg PO Daily -Atorvastatin 40 mg PO Daily -Continue home meds: Depakote -Confirm doses of lamictal and sertraline in AM and restart -Consult with neurology for evaluation of left facial droop -Check lyme titer -Pain control with acetaminophen -Regular diet -DVT PPx with lovenox -FULL CODE
[2018-03-02 00:35] VITALS: BP 168/90
[2018-03-02 00:46] VITALS: BP 140/88
[2018-03-02 06:18] VITALS: BP 128/90
--- NOTE | 2018-03-02 07:34 | PN- Housestaff ---
Lissy ASHLEY,Latosha 03/02/18 0733: Subjective Follow-up For: -New left sided facial droop with left eye weakness -Bipolar depression, on Depakote / Lamictal / Sertraline -Anxiety -ADD -Hypertension -Obesity -Current tobacco user, 2-3 cigars / week Subjective: Patient is sitting in bed, feels good. He is accompanied by his mother. Patient complains of left-sided double vision and left sided eye weakness on closing his eye. His vital signs are stable. Review of Systems Constitutional: Reports: no symptoms. EENTM: Reports: no symptoms. Cardiovascular: Reports: no symptoms. Respiratory: Reports: no symptoms. Gastrointestinal: Reports: no symptoms. Genitourinary: Reports: no symptoms. Musculoskeletal: Reports: no symptoms. Skin: Reports: no symptoms. Neurological/Psychological: Reports: weakness. Objective Last 24 Hrs of Vital Signs/I&O Vital Signs Date Time Temp Pulse Resp B/P B/P Pulse O2 O2 Flow FiO2 Mean Ox Delivery Rate 03/02 1415 98.4 73 18 144/90 97 Room Air 03/02 0618 97.8 74 18 128/90 96 Room Air 03/02 0046 140/88 03/02 0035 98.4 63 18 168/90 96 Room Air 03/01 2209 87 18 137/81 100 Room Air 03/01 1947 Room Air 03/01 1938 84 16 144/85 98 Room Air Intake & Output 03/02 1600 03/02 0800 03/02 0000 Intake Total 400 120 0 Output Total Balance 400 120 0 Intake, Oral 400 120 0 Number 1 Bowel Movements Patient 270 lb 270 lb Weight Weight Reported by Patient Measurement Method Physical Exam General Appearance: Alert, Oriented X3, Cooperative, No Acute Distress Skin: No Rashes, No Breakdown, No Significant Lesion Skin Temp/Moisture Exam: Warm/Dry Cardiovascular: Regular Rate, Normal S1, Normal S2, No Murmurs Lungs: Clear to Auscultation, Normal Air Movement Abdomen: Normal Bowel Sounds, Soft, No Tenderness Neurological: Normal Gait, Normal Speech, Strength at 5/5 X4 Ext, Normal Tone, Sensation Intact, patient has tongue deviation to the right, the left side of his mouth is up turned, left eye closure is weak (facial nerve) Extremities: No Clubbing, No Cyanosis, No Edema, Normal Pulses, No Tenderness/ Swelling Current Medications: Current Medications Sig/Albert Start time Last Medication Dose Route Stop Time Status Admin Acetaminophen 650 MG Q6P PRN 03/01 2345 AC PO Aspirin 81 MG DAILY 03/02 0900 AC 03/02 PO 0735 Aspirin 81 MG ONCE ONE 03/01 2215 DC 03/01 PO 03/01 Aspirin 0 .STK-MED ONE 03/01 2208 DC PO Atorvastatin Calcium 40 MG 1700 03/02 0045 AC 03/02 PO 0100 Divalproex Sodium 2,500 MG QPM 03/01 2359 AC 03/02 PO 0059 Enoxaparin Sodium 40 MG DAILY 03/02 0900 AC 03/02 SC 0735 Lamotrigine 200 MG DAILY 03/02 1058 AC 03/02 PO 1249 Sertraline HCl 100 MG DAILY 03/02 1051 AC 03/02 PO 1249 Last 24 Hrs of Lab/Vamsi Results Last 24 Hrs of Labs/Mics: Laboratory Tests 03/02/18 1003: Valproic Acid Cancelled 03/02/18 0642: Anion Gap 11, Estimated GFR > 60, BUN/Creatinine Ratio 18.8, Magnesium 2.0, CBC w Diff Pending, WBC Pending, RBC Pending, Hgb Pending, Hct Pending, MCV Pending, MCH Pending, MCHC Pending, RDW Pending, Plt Count Pending, MPV Pending, Valproic Acid 167.3 H 03/01/181956: Anion Gap 10, Estimated GFR > 60, BUN/Creatinine Ratio 18.9, Glucose 96, Calcium 9.5, Total Bilirubin 0.3, AST 23, ALT 33, Alkaline Phosphatase 71, Total Protein 6.4, Albumin 4.0, Globulin 2.4, Albumin/Globulin Ratio 1.7, PT 11.2, INR 1.03, APTT 31, CBC w Diff NO MAN DIFF REQ, RBC 4.58 L, MCV 92.3, MCH 31.2 H, MCHC 33.8, RDW 12.2, MPV 9.2, Gran % 63.7, Lymphocytes % 24.0, Monocytes % 7.6, Eosinophils % 4.4, Basophils % 0.3, Absolute Granulocytes 5.6, Absolute Lymphocytes 2.1, Absolute Monocytes 0.7 H, Absolute Eosinophils 0.4, Absolute Basophils 0, Lyme Disease Antibody 0.06 Assessment/Plan Assessment: 32 year old man with past medical history of bipolar disorder, depression, anxiety, ADD, and hypertension seen for evaluation of facial droop. Patient reports seeing his psychiatrist Dr. Harris when they noticed that patient had a left facial droop with slight upturn of the corner of the mouth with some mild slurred speech. Patient denies noticing this but these findings were apparently seen by his mother who brought the patient to the ED. Patient admits to having some fatigue with mild headache and brief episodes of blurred vision over the past 24 hours. At work he had some minor left arm weakness with tingling. He reports working outside a lot recently for the past two weeks and noticed a tick on him that did not bite him. He denies any sick contacts or new medications. He does admit to new urinary frequency. Vitals- HR 84-87, RR 16-18, BP 137-144 / 81-85, O2 98-100% on room air Physical exam -General: well developed, obese young man in no acute distress -HEENT: NCAT, PERRLA, EOMI, anicteric sclera, MMM -Neck: Supple, no JVD, trachea midline -Cardio: Normal S1/S2 w/o m/g/r; RRR -Pulm: CTA bilaterally -Abd: Soft, NT, ND, BS+ -Neuro: Patient is awake and alert, speech is clear, follows commands, there is mild left sided facial droop with weakness of left eyelid without obvious forehead involvement or flattening of nasolabial folds, CN otherwise intact, coordination and sensation intact, hearing intact bilaterally, gait not assessed , strength 5/5 x4 without pronator drift, DTRs diffusely intact, gait not assessed, patient passed bedside swallow evaluation -Extremities: normal pulses Labs / Imaging / Studies -CBC: WBC 8.8, HGB 14.3, HCT 42.3, PLT 242 -BMP: Na 141, K 4.1, CL 100, CO2 31, BUN 17, Cr 0.9, AG 10, Glu 96 -LFT: within normal limits -Misc: INR 1.03 -EKG: normal sinus rhythm -CT head without IV contrast: * No acute intracranial pathology -CTA Head / Neck: * Postcontrast CT head: No intracranial hemorrhage or large acute infarction. * CTA neck: No hemodynamically significant stenosis in the major arteries of the neck. * CTA head: No large vessel occlusion or significant stenosis within the intracranial circulation. Assessment 32 year old man with multiple medical problems significant for Bipolar on Depakote, obesity, hypertension, and smoking seen for evaluation of vague neurologic complaints and mild facial droop. Patient current denies any symptoms other than his facial droop and left eye weakness. Vitals are significant only for a mildly elevated blood pressure. Physical exam redemonstrates the facial droop with left eye weakness without any obviosu forehead involvement / flattening of the nasolabial folds and with the right tongue deviation, left sided double vision, left-sided eye weakness on closure, distribution of the facial nerve. Labs including CBC, BMP, LFT, INR are within normal limits. EKG is NSR. CT imaging of the head is negative for any acute intracranial pathology. Patient received low dose oral aspirin in the ED.Clinically patient appears to have new onset left facial droop with left eye muscle involved and questionable forehead involved for which differentials include bells palsy versus TIA/CVA. He does have risk factors such as male gender, hypertension, obesity, and smoking for cerebrovascular disease however does not have any significant neurologic deficits and is quite young for TIA. Patient is placed under observation on the telemetry floor for telemetry monitoring, neurochecks, empiric aspirin / statin therapy, neurology consultations, and lyme titer check. Problem List -New left sided facial droop with left eye weakness -Bipolar depression, on Depakote / Lamictal / Sertraline -Anxiety -ADD -Hypertension -Obesity -Current tobacco user, 2-3 cigars / week Plan -Continue monitoring patient in observation on telemetry floor -Neurochecks every 8 hours -We have started Aspirin 81 mg PO Daily and Atorvastatin 40 mg PO Daily -We have checked a Depakote level which was high at 167.3, previous Depakote level on a lower dose, was 80.7 on January 03 of this year. Patient did increase his dose 1 month ago. He also takes Lamictal for his bipolar. We will continue this medication as well -Continue patient's sertraline -Neurology consult has been placed with Dr. Manzo. I spoke with her on the phone and she ordered MRI of the head with and without contrast. -Lyme titer negative -Pain control with acetaminophen -Regular diet -DVT PPx with lovenox -FULL CODE Problem List: 1. Obesity (BMI 30.0-34.9) 2. Facial droop 3. HTN (hypertension) Pain Ratin Pain Location: na Pain Goal: Remain pain free Pain Plan: na Tomorrow's Labs & Rationales: lorrie Con Benson 03/02/18 1341: Attending MD Review Statement Attending Statement Attending MD Statement: examined this patient, discuss w/resident/PA/SPECIAL EDUCATION ITINERANT TEACHER, agreed w/resident/PA/SPECIAL EDUCATION ITINERANT TEACHER, discussed with family, reviewed EMR data (avail), discussed with nursing, discussed with case mgmt Attending Assessment/Plan: Pt with facial droop / CT head negative. pt on depakote and his level is on higher side. will get neuro consult and f/u on their recommendations. Pt on depakote for bipolar disorder. will need to talk to his psychiatrist and find out if his levels were high previously also and if there was any change in his dose.
[2018-03-02] MEDS ORDERED: LAMICTAL100 M2 PO (10:53)
[2018-03-02] MEDS ORDERED: ATORVASTATIN CA40 M1 PO (13:44)
[2018-03-02] MEDS ORDERED: ASPIRIN81 M4 PO (13:44)
--- NOTE | 2018-03-02 13:45 | Patient Discharge Instructions ---
Discharge Instructions General Discharge Information You were seen/treated for: CRANIAL NERVE DEFICITS Special Instructions: PLEASE FOLLOW UP WITH PCP IN ONE WEEK PLEASE FOLLOW UP WITH NEUROLOGIST IN ONE WEEK Diet Continue normal diet: Yes Activity Full Activity/No Limits: Yes Acute Coronary Syndrome Inclusion Criteria At DC or during hospital stay patient has or had the following: ACS DIAGNOSIS No Discharge Core Measures Meds if any: Prescribed or Continued at Discharge Meds if any: NOT Prescribed or Continued at Discharge Congestive Heart Failure Inclusion Criteria At DC or during hospital stay patient has or had the following: CHF DIAGNOSIS No Discharge Core Measures Meds if any: Prescribed or Continued at Discharge Meds if any: NOT Prescribed or Continued at Discharge Cerebrovascular accident Inclusion Criteria At DC or during hospital stay patient has or had the following: CVA/TIA Diagnosis Yes Discharge Core Measures Meds if any: Prescribed or Continued at Discharge Meds if any: NOT Prescribed or Continued at Discharge Venous thromboembolism Inclusion Criteria VTE Diagnosis No VTE Type NONE VTE Confirmed by (Test) NONE Discharge Core Measures - Per Current guidelines, there needs to be overlap - treatment for the first 5 days of Warfarin therapy. - If discharged on Warfarin prior to 5 days of - overlap therapy, the patient will need to be - assessed for post discharge needs including - *Post discharge parental anticoagulation - *Warfarin and/or parental anticoagulation education - *Follow up date to check INR post discharge At least 5 days overlap therapy as Inpatient No Meds if any: Prescribed or Continued at Discharge Note: Overlap Therapy is Warfarin and Anticoagulant Meds if any: NOT Prescribed or Continued at Discharge
[2018-03-02 14:15] VITALS: BP 144/90
--- NOTE | 2018-03-02 16:43 | MRI REPORT ---
EXAMINATION: MR BRAIN WITHOUT AND WITH CONTRAST CLINICAL INFORMATION: Left-sided mild mouth droop, weakness of the facial nerve at closing the eye on the left. Right-sided tongue deviation. COMPARISON: [facility] Head and Neck 03/01/2018. TECHNIQUE: Multiplanar, multisequence imaging of the brain was performed before and after the intravenous administration of 10 mL of Gadavist. FINDINGS: There is no acute infarct, hemorrhage, mass, or extra-axial collection. The ventricles and sulci are normal in size and configuration without evidence of hydrocephalus. There are a few mild scattered foci of T2 prolongation in the cerebral white matter, a nonspecific finding. No abnormal intracranial enhancement is seen. There is no abnormal enhancement of the skull base cranial nerves with special attention to the facial and hypoglossal nerves. The major arterial flow voids are preserved. The orbital contents are normal. There are lobular mucosal retention cysts along the floor of the left maxillary sinus. IMPRESSION: No intracranial abnormality identified. No mass is seen involving the facial or hypoglossal nerves.
[2018-03-02 22:31] VITALS: BP 142/88
[2018-03-03 06:34] VITALS: BP 128/82
--- NOTE | 2018-03-03 07:38 | PN- Housestaff ---
Lissy ASHLEY,Latosha 03/03/18 0737: Subjective Follow-up For: -New left sided facial droop with left eye weakness -Bipolar depression, on Depakote / Lamictal / Sertraline -Anxiety -ADD -Hypertension -Obesity -Current tobacco user, 2-3 cigars / week Subjective: Patient was seen and examined. He notes that he had a headache last night and this morning has a less severe dull headache. Other than that he has no complaints and his vitals are stable. Denies chest pain, shortness of breath, visual disturbances, hearing deficits. Review of Systems Constitutional: Reports: no symptoms. EENTM: Reports: no symptoms. Cardiovascular: Reports: no symptoms. Respiratory: Reports: no symptoms. Gastrointestinal: Reports: no symptoms. Musculoskeletal: Reports: no symptoms. Skin: Reports: no symptoms. Objective Last 24 Hrs of Vital Signs/I&O Vital Signs Date Time Temp Pulse Resp B/P B/P Pulse O2 O2 Flow FiO2 Mean Ox Delivery Rate 03/03 0634 98.1 75 18 128/82 96 03/02 2231 98.2 72 18 142/88 98 Room Air 03/02 1415 98.4 73 18 144/90 97 Room Air Intake & Output 03/03 1600 03/03 0800 03/03 0000 Intake Total 280 Output Total Balance 280 Intake, Oral 280 Physical Exam General Appearance: Alert, Oriented X3, Cooperative, No Acute Distress Skin: No Rashes, No Breakdown, No Significant Lesion Cardiovascular: Regular Rate, Normal S1, Normal S2, No Murmurs Lungs: Clear to Auscultation, Normal Air Movement Abdomen: Normal Bowel Sounds, Soft, No Tenderness Neurological: Normal Gait, Normal Speech, Strength at 5/5 X4 Ext, Normal Tone, Sensation Intact, Reflexes 2+, PATIENT HAS SLIGHT TONGUE PROTRUSION TOWARDS THE RIGHT AND WEAKNESS OF HIS LEFT EYE WHEN CLOSE. hE ALSO HAS SLIGHT PRONATOR DRIFT, NEURO EXAM IS LARGELY UNCHANGED FROM YESTERDAY. Extremities: No Clubbing, No Cyanosis, No Edema Current Medications: Current Medications Sig/Albert Start time Last Medication Dose Route Stop Time Status Admin Acetaminophen 650 MG Q6P PRN 03/01 2345 AC 03/02 PO 1631 Aspirin 81 MG DAILY 03/02 0900 AC 03/03 PO 0835 Atorvastatin Calcium 40 MG 1700 03/02 0045 AC 03/02 PO 1631 Divalproex Sodium 2,500 MG QPM 03/01 2359 AC 03/02 PO 2101 Enoxaparin Sodium 40 MG DAILY 03/02 0900 AC 03/03 SC 0836 Lamotrigine 200 MG DAILY 03/04 0900 CAN PO Lamotrigine 200 MG DAILY 03/02 1058 AC 03/03 PO 0835 Sertraline HCl 100 MG DAILY 03/02 1051 AC 03/03 PO 0836 Assessment/Plan Assessment: 32 year old man with past medical history of bipolar disorder, depression, anxiety, ADD, and hypertension seen for evaluation of facial droop. Patient reports seeing his psychiatrist Dr. Harris when they noticed that patient had a left facial droop with slight upturn of the corner of the mouth with some mild slurred speech. Patient denies noticing this but these findings were apparently seen by his mother who brought the patient to the ED. Patient admits to having some fatigue with mild headache and brief episodes of blurred vision over the past 24 hours. At work he had some minor left arm weakness with tingling. He reports working outside a lot recently for the past two weeks and noticed a tick on him that did not bite him. He denies any sick contacts or new medications. He does admit to new urinary frequency. Vitals- HR 84-87, RR 16-18, BP 137-144 / 81-85, O2 98-100% on room air Physical exam -General: well developed, obese young man in no acute distress -HEENT: NCAT, PERRLA, EOMI, anicteric sclera, MMM -Neck: Supple, no JVD, trachea midline -Cardio: Normal S1/S2 w/o m/g/r; RRR -Pulm: CTA bilaterally -Abd: Soft, NT, ND, BS+ -Neuro: Patient is awake and alert, speech is clear, follows commands, there is mild left sided facial droop with weakness of left eyelid without obvious forehead involvement or flattening of nasolabial folds, CN otherwise intact, coordination and sensation intact, hearing intact bilaterally, gait not assessed , strength 5/5 x4 without pronator drift, DTRs diffusely intact, gait not assessed, patient passed bedside swallow evaluation -Extremities: normal pulses Labs / Imaging / Studies -CBC: WBC 8.8, HGB 14.3, HCT 42.3, PLT 242 -BMP: Na 141, K 4.1, CL 100, CO2 31, BUN 17, Cr 0.9, AG 10, Glu 96 -LFT: within normal limits -Misc: INR 1.03 -EKG: normal sinus rhythm -CT head without IV contrast: * No acute intracranial pathology -CTA Head / Neck: * Postcontrast CT head: No intracranial hemorrhage or large acute infarction. * CTA neck: No hemodynamically significant stenosis in the major arteries of the neck. * CTA head: No large vessel occlusion or significant stenosis within the intracranial circulation. Assessment 32 year old man with multiple medical problems significant for Bipolar on Depakote, obesity, hypertension, and smoking seen for evaluation of vague neurologic complaints and mild facial droop. Patient current denies any symptoms other than his facial droop and left eye weakness. Vitals are significant only for a mildly elevated blood pressure. Physical exam redemonstrates the facial droop with left eye weakness without any obviosu forehead involvement / flattening of the nasolabial folds and with the right tongue deviation, left sided double vision, left-sided eye weakness on closure, distribution of the facial nerve. Labs including CBC, BMP, LFT, INR are within normal limits. EKG is NSR. CT imaging of the head is negative for any acute intracranial pathology. Patient received low dose oral aspirin in the ED.Clinically patient appears to have new onset left facial droop with left eye muscle involved and questionable forehead involved for which differentials include bells palsy versus TIA/CVA. He does have risk factors such as male gender, hypertension, obesity, and smoking for cerebrovascular disease however does not have any significant neurologic deficits and is quite young for TIA. Patient is placed under observation on the telemetry floor for telemetry monitoring, neurochecks, empiric aspirin / statin therapy, neurology consultations, and lyme titer check. Problem List -New left sided facial droop with left eye weakness -Bipolar depression, on Depakote / Lamictal / Sertraline -Anxiety -ADD -Hypertension -Obesity -Current tobacco user, 2-3 cigars / week Plan -Continue monitoring patient in observation on telemetry floor -Neurochecks every 8 hours -We have started Aspirin 81 mg PO Daily and Atorvastatin 40 mg PO Daily -We have checked a Depakote level which was high at 167.3, previous Depakote level on a lower dose, was 80.7 on January 03 of this year. Patient did increase his dose 1 month ago. He also takes Lamictal for his bipolar. We have attempted to contact the patient's psychiatrist Dr. Harden to discuss his Depakote level. We have not received call back and have referred him to see her again for reevaluation of his Depakote. -Continue patient's sertraline -Neurology consult has been placed with Dr. Manzo. I spoke with her on the phone and she ordered MRI of the head with and without contrast yesterday which was negative. She will see the patient today. -Lyme titer negative -Pain control with acetaminophen -Regular diet -DVT PPx with lovenox -FULL CODE Problem List: 1. Obesity 2. Facial droop Pain Ratin Pain Location: NA Pain Goal: Remain pain free Pain Plan: Tylenol as needed Tomorrow's Labs & Rationales: NONE Compa ASHLEY,Ana 03/03/18 1038: Attending MD Review Statement Attending Statement Attending MD Statement: examined this patient, discuss w/resident/PA/CALL CENTER SPECIALIST, agreed w/resident/PA/CALL CENTER SPECIALIST, reviewed EMR data (avail), discussed with nursing, discussed with case mgmt, reviewed images Attending Assessment/Plan: Pt's condition is essentially unchanged. His MRI done with [facility] is negative. At this point I do not think this is an acute stroke. Nonetheless we have him on aspirin and statin given his risk factors of obesity and tobacco use. We have continued his usual psychiatric medications. If neurology sees him and clears him, he can be discharged today with outpatient follow-up.
[2018-03-03] MEDS ORDERED: LAMICTAL200 M1 PO (09:22)
--- NOTE | 2018-03-03 13:05 | Cons- Neurology ---
General Information and HPI Consulting Request Date of Consult: 03/03/18 Requested By: Marcelino ASHLEY,Con Mcneill Reason for Consult: L facial weakness History of Present Illness: Pt presents for eval of left facial weakness noted by his psychiatrist on 03-01. Pt therefore does not know actual time of onset. When he looked at himself in the mirror, he noticed some mild weakness. He has had a mild left-sided headache and mild blurring of vision of the left eye. He denied excessive tearing of the left eye. He denied otalgia, vertigo, tinnitus, fever, chills. No history of Lyme disease. No recent tick bites. No vertigo, gait instability , diplopia, dysarthria, dysphasia, limb weakness or numbness, no incoordination, no gait difficulties. He states that he carries a diagnosis of hypertension but of late this has gone untreated as he has no primary physician. Allergies/Medications Allergies: Coded Allergies: aripiprazole (From [employer]) (REALLY BAD DIZZY SPELLS PER PT 10/28/16) Home Med List: Aspirin (Aspirin*) 81 MG TAB.CHEW 81 MG PO DAILY VASCULAR HEALTH Atorvastatin Calcium 40 MG TABLET 40 MG PO DAILY CHOLESTEROL Divalproex Sodium (Depakote) 500 MG TABLET.DR 5 TAB PO QPM bipolar (Reported) Lamotrigine (Lamictal) 200 MG TABLET 1 TAB PO DAILY BIPOLAR (Reported) Sertraline HCl 100 MG TABLET 1 TAB PO DAILY MENTAL HEALTH (Reported) Current Medications: Current Medications Sig/Albert Start time Last Medication Dose Route Stop Time Status Admin Acetaminophen 650 MG Q6P PRN 03/01 2345 AC 03/03 PO 1210 Aspirin 81 MG DAILY 03/02 0900 AC 03/03 PO 0835 Atorvastatin Calcium 40 MG 1700 03/02 0045 AC 03/02 PO 1631 Divalproex Sodium 2,500 MG QPM 03/01 2359 AC 03/02 PO 2101 Enoxaparin Sodium 40 MG DAILY 03/02 0900 AC 03/03 SC 0836 Lamotrigine 200 MG DAILY 03/04 0900 CAN PO Lamotrigine 200 MG DAILY 03/02 1058 AC 03/03 PO 0835 Sertraline HCl 100 MG DAILY 03/02 1051 AC 03/03 PO 0836 Review of Systems Review of Systems: REVIEW OF SYSTEMS: (-) = negative / normal blank = not discussed Neurologic: see HPI Eyes: See HPI; wears glasses ENT: (-) Constitutional: (-) CV: HTN Respiratory: (-) /Renal: (-) Musculoskeletal: (-) Skin: (-) Psychiatric: bipolar d/o Heme: (-) GI: (-) Allergy/Immune: (-) Endocrine: (-) Other: (-) Past History Travel History Traveled to [place] past 21 day No Medical History Blood Transfusion Hx: No Neurological: NONE EENT: NONE Cardiovascular: hypertension Respiratory: NONE Gastrointestinal: umbilical hernia Hepatic: NONE Renal: NONE Musculoskeletal: NONE Psychiatric: anxiety, BIPOLAR DEPRESSION ADD Endocrine: NONE Blood Disorders: NONE Cancer(s): NONE Surgical History Surgical History: non-contributory Family History Relations & Conditions If Any: FATHER Relation not specified for: FH: hemochromatosis Psychosocial History Who Do You Live With? self Services at Home: None Primary Language: Faroese Smoking Status: Light Tobacco Smoker Functional Ability ADLs Independent: dressing, eating, toileting, bathing. Ambulation: independent IADLs Independent: shopping, housework, finances, food prep, telephone, transportation , medication admin. Employment History Employment: Employed ([employer]) Profession/Employer: [employer] Exam & Diagnostic Data Vital Signs and I&O Vital Signs Date Time Temp Pulse Resp B/P B/P Pulse O2 O2 Flow FiO2 Mean Ox Delivery Rate 03/03 0634 98.1 75 18 128/82 96 03/02 2231 98.2 72 18 142/88 98 Room Air 03/02 1415 98.4 73 18 144/90 97 Room Air Intake & Output 03/03 1600 03/03 0800 03/03 0000 Intake Total 280 Output Total Balance 280 Intake, Oral 280 Physical Exam: PHYSICAL EXAMINATION: nl = normal NT or blank = not tested GENERAL Appearance: nl Head: nl Eyes: nl ENT: nl Neck: nl Carotids: nl Lungs: nl Heart: nl Extremities: nl Spine: nl NEUROLOGIC MENTAL STATUS Level of consciousness: nl Orientation: nl Attention / Concentration: nl Memory: nl Fund of Knowledge: nl Speech / Language: nl NEUROLOGIC CRANIAL NERVES I: Olfaction: NT II: Optic nerves: nl Visual maradiaga: nl III: Pupils: nl Levator palpebrae: nl III, IV, : Ocular alignment: nl Extraocular motility: nl Pursuits/ saccades: nl V: Facial sensation: nl Masseter/Pterygoids: nl VII: Facial Motor: Mild weakness of the left orbicularis oculi with Rivers's phenomena; mild weakness of the left lower facial muscles; relative sparing of the left frontalis VIII: Hearing (finger rub): nl IX, X: Uvula and palate: nl XI: SCM, Upper trap.: nl XII: Tongue: nl MOTOR / NEUROMUSCULAR Bulk: nl Tone: nl Strength: nl Rapid alternating movements: nl Fine motor movements: nl Abnormal / involuntary movements: none CEREBELLAR / COORDINATION: intact SENSATION: intact DTR's symmetrically trace to 1+ PLANTARS: flexor GAIT: nl Last 48 Hours of Lab Results: Laboratory Tests 03/02 03/02 03/01 1003 0642 1957 Chemistry Sodium (137 - 145 mmol/L) 141 141 Potassium (3.5 - 5.1 mmol/L) 4.4 4.1 Chloride (98 - 107 mmol/L) 102 100 Carbon Dioxide (22 - 30 mmol/L) 28 31 H Anion Gap (5 - 16) 11 10 BUN (9 - 20 mg/dL) 15 17 Creatinine (0.7 - 1.2 mg/dL) 0.8 0.9 Estimated GFR (>60 ml/min) > 60 > 60 BUN/Creatinine Ratio (7 - 25 %) 18.8 18.9 Glucose (65 - 99 mg/dL) 96 Calcium (8.4 - 10.2 mg/dL) 9.5 Magnesium (1.6 - 2.3 mg/dL) 2.0 Total Bilirubin (0.2 - 1.3 mg/dL) 0.3 AST (17 - 59 U/L) 23 ALT (21 - 72 U/L) 33 Alkaline Phosphatase (< 127 U/L) 71 Total Protein (6.3 - 8.2 g/dL) 6.4 Albumin (3.5 - 5.0 g/dL) 4.0 Globulin (1.9 - 4.2 gm/dL) 2.4 Albumin/Globulin Ratio (1.1 - 2.2 %) 1.7 Coagulation PT (9.4 - 12.5 SEC) 11.2 INR (0.90 - 1.17) 1.03 APTT (25 - 37 SEC) 31 Hematology CBC w Diff Cancelled NO MAN DIFF REQ WBC (4.8 - 10.8 /CUMM) Cancelled 8.8 RBC (4.70 - 6.10 /CUMM) Cancelled 4.58 L Hgb (14.0 - 18.0 G/DL) Cancelled 14.3 Hct (42 - 52 %) Cancelled 42.3 MCV (80.0 - 94.0 FL) Cancelled 92.3 MCH (27.0 - 31.0 PG) Cancelled 31.2 H MCHC (33.0 - 37.0 G/DL) Cancelled 33.8 RDW (11.5 - 14.5 %) Cancelled 12.2 Plt Count (130 - 400 /CUMM) Cancelled 242 MPV (7.4 - 10.4 FL) Cancelled 9.2 Gran % (42.2 - 75.2 %) 63.7 Lymphocytes % (20.5 - 51.1 %) 24.0 Monocytes % (1.7 - 9.3 %) 7.6 Eosinophils % (0 - 5 %) 4.4 Basophils % (0.0 - 2.0 %) 0.3 Absolute Granulocytes (1.4 - 6.5 /CUMM) 5.6 Absolute Lymphocytes (1.2 - 3.4 /CUMM) 2.1 Absolute Monocytes (0.10 - 0.60 /CUMM) 0.7 H Absolute Eosinophils (0.0 - 0.7 /CUMM) 0.4 Absolute Basophils (0.0 - 0.2 /CUMM) 0 Serology Lyme Disease Antibody (RATIO) 0.06 Toxicology Valproic Acid (50 - 120 ug/mL) Cancelled 167.3 H Imaging/Other Studies: PATIENT: VIV MURRELL PRESENT AGE: 32 PATIENT ACCOUNT NO: [id number] : 86 LOCATION: 1NO ORDERING PHYSICIAN: Latosha Yuan MD SERVICE DATE: 03/02/181526 EXAM TYPE: MRI - MRI-HEAD W & W/O [facility] EXAMINATION: MR BRAIN WITHOUT AND WITH CONTRAST CLINICAL INFORMATION: Left-sided mild mouth droop, weakness of the facial nerve at closing the eye on the left. Right-sided tongue deviation. COMPARISON: [facility] Head and Neck 03/01/2018. TECHNIQUE: Multiplanar, multisequence imaging of the brain was performed before and after the intravenous administration of 10 mL of Gadavist. FINDINGS: There is no acute infarct, hemorrhage, mass, or extra-axial collection. The ventricles and sulci are normal in size and configuration without evidence of hydrocephalus. There are a few mild scattered foci of T2 prolongation in the cerebral white matter, a nonspecific finding. No abnormal intracranial enhancement is seen. There is no abnormal enhancement of the skull base cranial nerves with special attention to the facial and hypoglossal nerves. The major arterial flow voids are preserved. The orbital contents are normal. There are lobular mucosal retention cysts along the floor of the left maxillary sinus. IMPRESSION: No intracranial abnormality identified. No mass is seen involving the facial or hypoglossal nerves. DICTATED BY: Sally Das MD DATE/TIME DICTATED:03/02/181622 TELEPHONIC CASE MANAGER:MIKE DATE/TIME TRANSCRIBED:03/02/181622 CONFIDENTIAL, DO NOT COPY WITHOUT APPROPRIATE AUTHORIZATION. IMPRESSION: Postcontrast CT head: No intracranial hemorrhage or large acute infarction. CTA neck: No hemodynamically significant stenosis in the major arteries of the neck. CTA head: No large vessel occlusion or significant stenosis within the intracranial circulation. DICTATED BY: Sally Das MD DATE/TIME DICTATED:03/01/182108 Assessment/Plan Assessment: Idiopathic facial palsy, aka Rivers's palsy, very mild, involving the left side Recommendations: Corneal protection with artificial tears and nighttime ocular lubricant for the left eye. Although corticosteroids are sometimes given for this condition, given the mild nature of his deficit and history of bipolar disorder, would be in favor of not treating at this time. Check a serum Lyme titer General health measures such as smoking cessation, weight loss, blood pressure control As this is not a stroke, he does not need daily aspirin therapy from a neurologic perspective Office follow-up as needed Consult Acknowledgment - Thank you for your consult request.
[2018-03-03 14:11] VITALS: BP 132/80
[2018-03-03] MEDS ORDERED: ARTIFICIAL TEA1 EACH OS ×2 (16:27→16:49)
== END 2018-03-03 18:30 ==
LOC: ERH 19:22 → 1NO 22:19 → ERHI 22:19 → ENRESERV 23:47 → 1NO 03-02 00:12 → ENPENDDIS 03-03 16:27 → ENTRNSPT 03-03 18:12 → 1NO 03-03 18:30 → CMPTRNSPT 03-03 18:31
PROVIDERS: Emergency Medicine
DX: G51.0 Bell's palsy (principal); F31.9 Bipolar disorder, unspecified; I10 Essential (primary) hypertension; F41.9 Anxiety disorder, unspecified; F98.8 Other specified behavioral and emotional disorders with onset usually occurring in childhood and adolescence; E66.9 Obesity, unspecified; F17.200 Nicotine dependence, unspecified, uncomplicated; Z79.82 Long term (current) use of aspirin; K42.9 Umbilical hernia without obstruction or gangrene
CPT/HCPCS: 70552; 86618; 36592; 70553; 82436; 93005; 93010; 96372; A9579; G0378; J1650; J3490